=== PATIENT | female | born 1975 | race Two or more races ===

== ENCOUNTER 2020-04-27 11:29 | Outpatient (REF) | payer OTHER, SELFPAY ==
[2020-04-28 21:37] LABS: C. trachomatis RNA TMA NOT DETECTED (NOT DETECTED); N. gonorrhoeae RNA TMA NOT DETECTED (NOT DETECTED)
[2020-04-29 19:17] LABS: HPV mRNA E6/E7 rflx Not Detected (Not Detected)
== END 2020-04-27 11:30 | disposition home or self-care (01) ==
LOC: HO.LAB 11:29
PROVIDERS: PCP Internal Medicine; Visit Provider Advanced Practice Midwife
DX: Z12.4 Encounter for screening for malignant neoplasm of cervix (principal); Z98.890 Other specified postprocedural states; N88.9 Noninflammatory disorder of cervix uteri, unspecified
CPT/HCPCS: 36415; 87491; 87591; 87624; 88141; 88142

== ENCOUNTER 2020-04-29 09:08 | Outpatient (REF) | payer OTHER, SELFPAY ==
[2020-04-29 10:44] LABS: Hematocrit 39.8 % (37-47); Hemoglobin 12.9 g/dl (12.0-16.0); Mean Corpuscular HGB Conc 32.4 g/dl (31.0-35.0); Mean Corpuscular Hemoglobin 29.9 pg (27.0-33.0); Mean Corpuscular Volume 92.1 fL (80-98); Mean Platelet Volume 11.1 fL (9.4-12.3); Platelet Count 261 X10*3/uL (160-400); Red Blood Count 4.32 X10*6/uL (4.20-5.50); Red Cell Distribution Width 13.2 % (11.0-16.0); White Blood Count 4.8 X10*3/uL (4.8-10.8)
[2020-04-29 11:24] LABS: TSH reflex Free T4 1.01 mIU/mL (0.32-4.0)
[2020-04-29 11:36] LABS: Syphilis Screen Nonreactive (Nonreactive)
[2020-04-29 11:40] LABS: HIV AB/AG Nonreactive (Nonreactive); HIV Num 1 0.42 S/CO (0.00-0.99); ~HepC Num1 0.12 S/CO (0.00-0.79); ~Hepatitis C Antibody Nonreactive (Nonreactive)
[2020-04-29 14:19] LABS: HBsAGNum1 0.28 S/CO (0.00-0.99); Hepatitis B Surface Antigen Negative (Negative)
[2020-05-01 10:30] LABS: C. trachomatis RNA TMA NOT DETECTED; N. gonorrhoeae RNA TMA NOT DETECTED
== END 2020-04-29 09:09 | disposition home or self-care (01) ==
LOC: HO.LAB 09:08
PROVIDERS: PCP Internal Medicine; Visit Provider Advanced Practice Midwife
DX: N92.0 Excessive and frequent menstruation with regular cycle (principal); Z20.2 Contact with and (suspected) exposure to infections with a predominantly sexual mode of transmission
CPT/HCPCS: 36415; 84443; 85027; 86780; 86803; 87340; 87389; 87491; 87591

== ENCOUNTER 2021-01-14 09:08 | Outpatient (REF) | payer OTHER, SELFPAY ==
--- NOTE | ~2021-01-14 | MM_ITS ---
EXAMINATION: MM SCREENING DIGITAL BREAST TOMOSYNTHESIS, BILATERAL CLINICAL INFORMATION: Screening. Asymptomatic. The lifetime risk of breast cancer based on the Tyrer-Cuzick Model is 7%. COMPARISON: Mammography: 08/20/2018, 07/25/2017, 04/30/2016 TECHNIQUE: Digital breast tomosynthesis is performed in both the craniocaudal and mediolateral oblique views along with computer-aided detection (CAD). Synthesized 2D images are generated from the tomosynthesis. FINDINGS: There are scattered areas of fibroglandular density (ACR BI-RADS breast composition Category b). There are no significant masses, abnormal calcifications, or other abnormalities. Parenchymal pattern is similar to prior studies. No significant changes. Skin contours are smooth. MM/MM tomosynthesis screening BI IMPRESSION: No mammographic evidence of malignancy. ASSESSMENT: BI-RADS 1: Negative RECOMMENDATION: Routine annual mammography screening. This patient's information was entered into a reminder system with a target due date for their next mammogram.
== END 2021-01-14 09:09 | disposition home or self-care (01) ==
LOC: HO.MAMMO 09:08
PROVIDERS: Visit Provider Internal Medicine
DX: Z12.31 Encounter for screening mammogram for malignant neoplasm of breast (principal)
CPT/HCPCS: 77063; 77067

== ENCOUNTER 2021-04-18 09:10 | Outpatient (REF) | payer OTHER, SELFPAY ==
[2021-04-18 09:44] LABS: MANUAL DIFF FLAG NO
[2021-04-18 10:05] LABS: Basophils Percent Auto 0.4 % (0-2); Eosinophils Absolute Auto 0.1 X10*3/uL (0.0-0.4); Eosinophils Percent Auto 2.2 % (0-4); Hematocrit 39.3 % (37.0-47.0); Hemoglobin 12.8 g/dl (12.0-16.0); Imm Gran Abs Auto 0.01 X10*3/uL (0.00-0.03); Imm Gran Pct Auto 0.2 % (0.0-0.4); Lymphocytes Absolute Auto 1.7 X10*3/uL (1.2-4.9); Mean Corpuscular HGB Conc 32.6 g/dl (31.0-35.0); Mean Corpuscular Hemoglobin 29.9 pg (27.0-33.0); Mean Corpuscular Volume 91.8 fL (80.0-98.0); Mean Platelet Volume 10.3 fL (9.4-12.3); Monocytes Absolute Auto 0.3 X10*3/uL (0.1-1.2); Neutrophils Absolute Auto 2.4 x10*3/uL (2.0-8.3); Neutrophils Percent Auto 53.2 % (45-73); Platelet Count 279 X10*3/uL (160-400); Red Blood Count 4.28 X10*6/uL (4.20-5.50); White Blood Count 4.5 X10*3/uL (4.8-10.8)
[2021-04-18 10:41] LABS: Alanine Aminotransferase 26 U/L (0-31); Albumin Level 4.4 g/dL (3.5-5.0); Alkaline Phosphatase 80 U/L (39-117); Anion Gap 12 (12-20); Aspartate Amino Transferase 19 U/L (5-31); Bilirubin Total < 0.2 mg/dL (0.0-1.0); Blood Urea Nitrogen 15 mg/dL (9-16); Calcium 9.6 mg/dL (8.4-10.2); Carbon Dioxide 27 mmol/L (22-29); Chloride 106 mmol/L (96-108); Cholesterol 191 mg/dL; Estimated Glomerular Filt Rate > 60; Glucose Fasting 92 mg/dL (60-99); HDL Cholesterol 48 mg/dL; LDL Cholesterol Calculated 131 mg/dl; Potassium 4.5 mmol/L (3.3-5.1); Sodium 140 mmol/L (135-145); Total Protein 7.8 g/dL (6.5-8.0); Triglycerides 61 mg/dL
[2021-04-18 10:45] LABS: Appearance Urine CLEAR; Color Urine YELLOW; Glucose Urine UA NEG (NEG); Leukocyte Esterase Urine NEG (NEG); Nitrite Urine NEG (NEG); Specific Gravity - Urine 1.025 (1.005-1.025); Urine Blood NEG (NEG); Urine Ketones NEG (NEG); Urine Protein NEG (NEG-TRACE)
[2021-04-18 11:01] LABS: TSH reflex Free T4 0.92 uIU/mL (0.32-4.0); Vitamin D 25-OH Total 13.1 ng/mL (>30)
== END 2021-04-18 09:11 | disposition home or self-care (01) ==
LOC: HO.LAB 09:10
PROVIDERS: PCP Internal Medicine; Visit Provider Internal Medicine
DX: Z00.00 Encounter for general adult medical examination without abnormal findings (principal); E78.00 Pure hypercholesterolemia, unspecified; E55.9 Vitamin D deficiency, unspecified
CPT/HCPCS: 36415; 80053; 80061; 81003; 82306; 84443; 85025

== ENCOUNTER → 2021-04-28 09:33 | Outpatient (BNVA) | payer OTHER, SELFPAY | PROVIDERS: PCP Internal Medicine; Visit Provider Advanced Practice Midwife ==

== ENCOUNTER → 2021-05-01 07:54 | Outpatient (BNVA) | payer OTHER, SELFPAY | PROVIDERS: PCP Internal Medicine; Visit Provider Obstetrics & Gynecology ==

== ENCOUNTER 2021-05-16 11:00 | Outpatient (REF) | payer OTHER, SELFPAY | END 2021-05-16 11:01 | disposition home or self-care (01) | LOC: HO.LAB 11:00 | PROVIDERS: PCP Internal Medicine; Visit Provider Obstetrics & Gynecology | DX: N90.89 Other specified noninflammatory disorders of vulva and perineum (principal) | CPT/HCPCS: 56605; 88305; 88312 ==

== ENCOUNTER → 2021-05-30 13:29 | Outpatient (BNVA) | payer OTHER, SELFPAY | PROVIDERS: PCP Internal Medicine; Visit Provider Obstetrics & Gynecology ==

== ENCOUNTER → 2021-07-19 09:51 | Outpatient (BNVA) | payer OTHER, SELFPAY | PROVIDERS: PCP Internal Medicine; Referring Provider Obstetrics & Gynecology; Visit Provider Physician Assistant | DX: Z12.11 Encounter for screening for malignant neoplasm of colon (principal) | CPT/HCPCS: 99202 ==

== ENCOUNTER 2021-08-24 12:42 | Outpatient (REF) | payer OTHER, SELFPAY ==
--- NOTE | ~2021-08-24 | XR_ITS ---
EXAMINATION: XR CHEST CLINICAL INFORMATION: Other specified symptoms and signs involving the COMPARISON: Chest radiograph from 12/15/2016 TECHNIQUE: 2 views of the chest were obtained. FINDINGS: Slight curvilinear atelectasis involving the left lung base. No pneumothorax. Trachea is midline. Cardiomediastinal silhouette is not enlarged. No large pleural effusion. Osseous structures are intact. Soft tissues are unremarkable. XR/XR chest 2V IMPRESSION: Slight curvilinear atelectasis involving the left lung base.
== END 2021-08-24 12:43 | disposition home or self-care (01) ==
LOC: HO.HMGCX 12:42
PROVIDERS: PCP Internal Medicine; Visit Provider Internal Medicine
DX: R09.89 Other specified symptoms and signs involving the circulatory and respiratory systems (principal); R53.83 Other fatigue; R68.83 Chills (without fever)
CPT/HCPCS: 71046

== ENCOUNTER 2022-01-02 11:15 | Outpatient (REF) | payer OTHER, SELFPAY ==
[2022-01-02 15:33] LABS: Monotest Negative (Negative)
== END 2022-01-02 11:16 | disposition home or self-care (01) ==
LOC: HO.HMGCLDS 11:15
PROVIDERS: PCP Internal Medicine; Visit Provider Physician Assistant
DX: J02.9 Acute pharyngitis, unspecified (principal)
CPT/HCPCS: 36415; 86308

== ENCOUNTER 2022-01-02 11:44 | Outpatient (REF) | payer OTHER, SELFPAY ==
--- NOTE | ~2022-01-02 | US_ITS ---
EXAMINATION: US PELVIS CLINICAL INFORMATION: Pelvic and perineal pain COMPARISON: Pelvic ultrasound 11/26/2018 TECHNIQUE: Ultrasound of the pelvis is performed using both transabdominal and transvaginal transducers along with Doppler. Transvaginal imaging is performed due to inadequate visualization transabdominally. FINDINGS: Uterus: The uterus is anteverted and measures 9.0 x 4.8 x 5.8 cm. Multiple uterine fibroids are present with a fundal fibroid measuring 2.1 x 2.0 x 1.4 cm (previously 3.9 x 2.7 x 3.9) and a mid uterine submucosal fibroid measuring 2.4 x 1.7 x 2.3 cm (previously 2.2 x 2.0 x 2.4 cm). A new uterine segment fibroid is seen measuring about 1 cm in size. The double wall endometrial thickness is 0.6 mm. The uterus is smooth in contour and has normal myometrial echogenicity. No visible fibroid. Adnexa: Both ovaries are visualized. There is normal color flow to the adnexa. There is no ovarian torsion. There is no pelvic ascites or fluid collection. An abnormal adnexal mass is not seen. Right ovary measures 2.2 x 1.3 x 1.9 cm. Left ovary measures 2.0 x 1.1 x 1.6 cm. US/US pelvic and transvaginal IMPRESSION: Uterine fibroids appear smaller when compared to the prior study.
--- NOTE | ~2022-01-02 | US_ITS ---
EXAMINATION: US PELVIS CLINICAL INFORMATION: Pelvic and perineal pain COMPARISON: Pelvic ultrasound 11/26/2018 TECHNIQUE: Ultrasound of the pelvis is performed using both transabdominal and transvaginal transducers along with Doppler. Transvaginal imaging is performed due to inadequate visualization transabdominally. FINDINGS: Uterus: The uterus is anteverted and measures 9.0 x 4.8 x 5.8 cm. Multiple uterine fibroids are present with a fundal fibroid measuring 2.1 x 2.0 x 1.4 cm (previously 3.9 x 2.7 x 3.9) and a mid uterine submucosal fibroid measuring 2.4 x 1.7 x 2.3 cm (previously 2.2 x 2.0 x 2.4 cm). A new uterine segment fibroid is seen measuring about 1 cm in size. The double wall endometrial thickness is 0.6 mm. The uterus is smooth in contour and has normal myometrial echogenicity. No visible fibroid. Adnexa: Both ovaries are visualized. There is normal color flow to the adnexa. There is no ovarian torsion. There is no pelvic ascites or fluid collection. An abnormal adnexal mass is not seen. Right ovary measures 2.2 x 1.3 x 1.9 cm. Left ovary measures 2.0 x 1.1 x 1.6 cm. US/US pelvic ovarian doppler IMPRESSION: Uterine fibroids appear smaller when compared to the prior study.
== END 2022-01-02 11:45 | disposition home or self-care (01) ==
LOC: HO.HMGCX 11:44
PROVIDERS: PCP Internal Medicine; Visit Provider Physician Assistant
DX: R10.2 Pelvic and perineal pain (principal)
CPT/HCPCS: 76830; 76856; 93975

== ENCOUNTER 2022-01-16 07:47 | Outpatient (REF) | payer OTHER, SELFPAY ==
--- NOTE | ~2022-01-16 | MM_ITS ---
EXAMINATION: MM SCREENING DIGITAL BREAST TOMOSYNTHESIS, BILATERAL CLINICAL INFORMATION: Screening. Asymptomatic. The lifetime risk of breast cancer based on the Tyrer-Cuzick Model is 7%. COMPARISON: Mammography: 01/14/2021, 08/20/2018, 07/25/2017, 04/30/2016 TECHNIQUE: Digital breast tomosynthesis is performed in both the craniocaudal and mediolateral oblique views along with computer-aided detection (CAD). Synthesized 2D images are generated from the tomosynthesis. FINDINGS: There are scattered areas of fibroglandular density (ACR BI-RADS breast composition Category b). Right breast parenchymal pattern is similar to prior studies and there is no developing density or interval mass or architectural abnormality. Neither breast shows abnormal calcifications. Small low left axillary tail node is stable. The bilateral axilla and skin contours are unremarkable. Left CC view has nodular asymmetry central inner breast 6.5 cm from nipple, without appreciable correlate on MLO view. Patient will be recalled for additional imaging. MM/MM tomosynthesis screening BI IMPRESSION: Left: -Nodular asymmetry central 11:00 6.5 cm from nipple on CC view. Right: -No mammographic evidence of malignancy. ASSESSMENT: BI-RADS 0: Incomplete - Need Additional Imaging Evaluation RECOMMENDATION: 1. Additional views of the left breast (rolled CC x2, standard ML). 2. Targeted ultrasound if warranted after review of the additional views. 3. Radiology department staff will contact the patient for additional imaging. This patient's information was entered into a reminder system with a target due date for their next mammogram.
== END 2022-01-16 07:48 | disposition home or self-care (01) ==
LOC: HO.MAMMO 07:47
PROVIDERS: Visit Provider Internal Medicine
DX: Z12.31 Encounter for screening mammogram for malignant neoplasm of breast (principal)
CPT/HCPCS: 77063; 77067

== ENCOUNTER 2022-02-05 14:16 | Outpatient (REF) | payer OTHER, SELFPAY ==
--- NOTE | ~2022-02-05 | MM_ITS ---
EXAMINATION: MM DIAGNOSTIC DIGITAL BREAST TOMOSYNTHESIS, LEFT TARGETED LEFT BREAST ULTRASOUND CLINICAL INFORMATION: Density medial aspect of the left breast. COMPARISON: Mammography: 01/16/2022 and studies dating back to 03/18/2015. TECHNIQUE: Digital breast tomosynthesis is performed. 2D images are generated from the tomosynthesis. The following views are obtained: Rolled medial and lateral craniocaudal views as well as spot compression craniocaudal view and full-field 90 degree mediolateral view of the left breast. Targeted left breast ultrasound. FINDINGS: There are scattered areas of fibroglandular density (ACR BI-RADS breast composition Category b). Additional imaging demonstrates with the rolled views that the lesion lies within the superior aspect of the left breast. There is persistence of an approximately 8 x 4 mm density, a portion of which is well circumscribed but with posterior margin not being well seen. On the 90-degree mediolateral view there appears to be a circumscribed density about the superior aspect of the breast approximately 12 o'clock position. Targeted left breast ultrasound demonstrated a circumscribed and slightly lobulated 7 x 6 x 4 mm solid lesion 12 o'clock position 4 cm from the nipple. There is some adjacent vascular flow but not definite internal vascular flow. The lesion is wider than it is tall. There is no significant distal sound shadowing or enhancement. Ultrasound-guided core biopsy is recommended. Results are discussed with the patient at time of visit. MM/MM tomosynthesis added views L IMPRESSION: Left breast lesion 12 o'clock position for which ultrasound-guided core biopsy is recommended. ASSESSMENT: BI-RADS 4: Suspicious (subcategory 4A: Low suspicion for malignancy) RECOMMENDATION: Ultrasound-guided core biopsy. Above recommendation was called to referring provider's office notifying [facility]. This patient's information was entered into a reminder system with a target due date for their next mammogram.
== END 2022-02-05 14:17 | disposition home or self-care (01) ==
LOC: HO.MAMMO 14:16
PROVIDERS: PCP Internal Medicine; Visit Provider Internal Medicine
DX: N64.89 Other specified disorders of breast (principal)
CPT/HCPCS: 76642; 77061; 77065

== ENCOUNTER → 2022-02-08 08:39 | Outpatient (BNVA) | payer OTHER, SELFPAY | PROVIDERS: PCP Internal Medicine; Visit Provider Surgery | DX: N63.20 Unspecified lump in the left breast, unspecified quadrant (principal) | CPT/HCPCS: 99202 ==

== ENCOUNTER 2022-02-09 07:57 | Outpatient (REF) | payer OTHER, SELFPAY ==
--- NOTE | ~2022-02-09 | MM_ITS ---
PROCEDURE: US GUIDED BREAST BIOPSY, LEFT MM TOMOSYNTHESIS DIAGNOSTIC, LEFT CLINICAL INFORMATION: Indeterminate lump 12-o'clock location, 4 cm from the nipple. COMPARISON: 02/05/2022 PROCEDURAL DETAILS: The details of the procedure, as well as the risks, benefits, and alternatives to the procedure were explained to the patient in detail and all of her questions were answered, after which written informed consent was obtained. Site and side were confirmed. Prior to the procedure, sonography revealed a circumscribed, slightly lobular, hypoechoic lesion. A time-out was performed, the lesion intended for biopsy was targeted, and the skin of the left breast was then prepped and draped in the usual sterile fashion. Using sonographic guidance, sterile technique, and 1% lidocaine without epinephrine for local anesthesia, multiple automated core biopsies were obtained through the targeted area with a 14G spring-loaded Achieve core biopsy device. There was real-time confirmation of appropriate needle passage. Sampling was documented. At the completion of tissue sampling, a single butterfly-shaped metallic clip was deposited at the biopsy site. There was no evidence of immediate complication. SPECIMEN: An appropriate sample was obtained. DIGITAL POST-PROCEDURE MAMMOGRAPHY: Breast density: The tissue contains scattered areas of fibroglandular density. BI-RADS version 5, category B. There are no new mammographic findings demonstrated. The postprocedure 2-view direct digital mammogram reveals the clip to correspond with the location noted on mediolateral oblique view but which is different than the density seen on craniocaudal view. The density on craniocaudal view is not as prominent as on prior study and is well circumscribed and not definitely identified on ultrasound of this region. Recommend 6-month follow up left breast mammography to ensure stability. The patient tolerated the procedure well and, after assuring adequate hemostasis, was discharged in good condition after reviewing postbiopsy breast care instructions. Final pathology results are pending. MM/MM tomosynthesis diagnostic LT IMPRESSION: 1. No immediate complication from ultrasound-guided percutaneous biopsy left breast. 2. Ultrasound was used to localize and guide marker clip placement. 3. The 2-view direct digital postprocedure mammogram reveals the clip to corresponds with density seen on mediolateral oblique view but not on craniocaudal view which appears to be a separate structure and for which 6-month follow up left mammogram is suggested. 4. Final pathology results are pending. A separate report with final recommendations will be issued once these results are made available.
[2022-02-09] MEDS: Lidocaine HCl 1 % 20 ML VIAL 9 ML SUBCUT (09:16)
== END 2022-02-09 07:58 | disposition home or self-care (01) ==
LOC: HO.MAMMO 07:57
PROVIDERS: PCP Internal Medicine; Visit Provider Surgery
DX: N63.25 Unspecified lump in the left breast, overlapping quadrants (principal)
CPT/HCPCS: 19083; 77061; 77065; 88305

== ENCOUNTER → 2022-02-15 08:40 | Outpatient (BNVA) | payer OTHER, SELFPAY | PROVIDERS: PCP Internal Medicine; Visit Provider Surgery | DX: D24.9 Benign neoplasm of unspecified breast (principal) | CPT/HCPCS: 99212 ==

== ENCOUNTER 2022-02-22 10:59 | Outpatient (REF) | payer OTHER, SELFPAY ==
--- NOTE | ~2022-02-22 | US_ITS ---
EXAMINATION: US RETROPERITONEAL LIMITED (RENAL ONLY) CLINICAL INFORMATION: Unspecified abdomen pain. COMPARISON: None TECHNIQUE: Real-time examination. FINDINGS: RIGHT KIDNEY: 11.3 x 6.2 x 5.9 cm (SAG x AP x TRV). The kidney is normal in size, contour, and echogenicity. Renal cortical thickness is normal. No hydronephrosis. There is a small echogenic focus in the lower pole suggestive of a stone measuring 2.5 to 3 mm maximally. LEFT KIDNEY: 11.6 x 6.4 x 5.9 cm (SAG x AP x TRV). The kidney is normal in size, contour, and echogenicity. Renal cortical thickness is normal. No hydronephrotic changes. There are 2 interpolar echogenic foci observed suggestive of small nephroliths measuring up to 3 mm each. US/US renal BI IMPRESSION: Renal sizes as noted above. No hydronephrosis. Bilateral echogenic foci suggestive of small nephroliths.
== END 2022-02-22 11:00 | disposition home or self-care (01) ==
LOC: HO.HMGCX 10:59
PROVIDERS: PCP Internal Medicine; Visit Provider Physician Assistant Medical
DX: R10.9 Unspecified abdominal pain (principal)
CPT/HCPCS: 76775

== ENCOUNTER 2022-02-22 11:38 | Outpatient (REF) | payer OTHER, SELFPAY ==
[2022-02-22 14:15] LABS: Appearance Urine Clear; Color Urine Yellow; Glucose Urine UA Negative (Negative); Leukocyte Esterase Urine Negative (Negative); Nitrite Urine Negative (Negative); PH 7.5 (5.0-9.0); UMIC TRIGGER UACC YES; Urine Blood Moderate (2+) (Negative); Urine Ketones Negative (Negative); Urine Protein Negative (Neg-Trace)
[2022-02-22 14:24] LABS: Bacteria Urine None Seen (None Seen); Hyaline Casts Urine 0-2 /LPF (0-2); Squamous Epithelial Cell Urine 0-2 /HPF (0-2); WBC Urine 0-5 /HPF (0-5)
== END 2022-02-22 11:39 | disposition home or self-care (01) ==
LOC: HO.LAB 11:38
PROVIDERS: Visit Provider Physician Assistant Medical
DX: R10.9 Unspecified abdominal pain (principal); R30.0 Dysuria
CPT/HCPCS: 81001

== ENCOUNTER 2022-03-02 11:27 | Day surgery (SDC) | payer OTHER, SELFPAY ==
--- NOTE | 2021-10-19 09:31 | HO.ANESPROP2 ---
HPI - Anesthesia Eval Consult details Narrative: 46yo F for Colonoscopy PMFSH Active Problems Active Problems: All Active Problems (Updated 08/24/21 @ 12:32 by Suma Armando MD) Lack of energy (Acute) Chills (Acute) Tired (Acute) Chest congestion (Acute) Acute bronchitis (Acute) Encounter for screening colonoscopy (Acute) Lichen simplex chronicus (Acute) Vulvar lesion (Acute) Well woman exam (Acute) Anxiety and depression (Acute) Overweight (BMI 25.0-29.9) (Acute) Annual physical exam (Acute) Otitis media (Acute) Past Medical History Medical History Anxiety COVID-19 Depression History of menorrhagia Overweight (BMI 25.0-29.9) Family History Family History Mother Mental health disorder Father No problems noted. Surgical History Surgical History H/O prior ablation treatment Hx of tubal ligation Social History Social History Housing: House Alcohol intake: never Patient Tobacco Use Status: Never used Tobacco Second Hand Smoke Exposure: No service: No Current occupational status: employed Gender identity: Female Meds Allergies Allergy/AdvReac Type Severity Reaction Status Date / Time oxycodone [OXYCODONE] Allergy Unknown N/V,DIZZY Verified 08/24/21 12:21 shrimp AdvReac Unknown NAUSEA Verified 08/24/21 12:21 Shrimp Allergy Unknown Stomache Uncoded 08/24/21 12:21 pain Exam Exam Date and Time: October 19, 2021 0931 Pertinent Lab Results Pertinent Lab Results: Laboratory Tests 04/18/21 04/18/21 09:40 09:40 WBC 4.5 L Hgb 12.8 Hct 39.3 Plt Count 279 Sodium 140 Potassium 4.5 Chloride 106 Carbon Dioxide 27 BUN 15 Creatinine 0.74 Assessment and Plan Assessment Anesthesia Assessment: Chart Reviewed
[2022-02-23 10:45] VITALS: BMI 28.5
--- NOTE | 2022-03-01 14:07 | HO.ANESPROP2 ---
Documented by User: Agustina Benz NP 03/01/22 14:13 HPI - Anesthesia Eval Consult details Narrative: 46yo F for Colonoscopy PMFSH Active Problems Active Problems: All Active Problems (Updated 02/27/22 @ 18:43 by Danie Briceno MD) Nephrolithiasis (Acute) Otitis media (Acute) Annual physical exam (Acute) Anxiety and depression (Acute) Well woman exam (Acute) Vulvar lesion (Acute) Lichen simplex chronicus (Acute) Encounter for screening colonoscopy (Acute) Acute bronchitis (Acute) Chest congestion (Acute) Tired (Acute) Chills (Acute) Lack of energy (Acute) Fibroadenoma (Acute) Breast mass, left (Acute) Overweight (BMI 25.0-29.9) (Acute) Past Medical History Medical History Anxiety Breast mass, left COVID-19 Depression Fibroadenoma History of menorrhagia Overweight (BMI 25.0-29.9) Family History Family History Mother Mental health disorder Father No problems noted. Surgical History Surgical History H/O prior ablation treatment Hx of breast biopsy Hx of tubal ligation Social History Social History Housing: House Alcohol intake: never Patient Tobacco Use Status: Never used Tobacco Second Hand Smoke Exposure: No Use of substances other than those prescribed or required for medical reasons: No Are you DNR?: No Advance Directives: No Advance Directives Information Provided: Yes service: No Current occupational status: employed Gender identity: Female Meds Allergies Allergy/AdvReac Type Severity Reaction Status Date / Time oxycodone [OXYCODONE] Allergy Intermediate nausea/vomi Verified 02/23/22 10:39 ting/dizzin ess shrimp AdvReac Intermediate NAUSEA Verified 02/23/22 10:39 Home Medications Medication Instructions Recorded Confirmed Last Taken Type No Known Home Meds 02/15/22 02/23/22 Unknown History Exam Exam Date and Time: March 01, 2022 1407 Height,Weight and Vital Signs: Height 5 ft 6 in Weight 80.286 kg Assessment and Plan Assessment Anesthesia Assessment: Chart Reviewed Documented by User: Shelbi Fulton MD 03/02/22 14:04 [facility] Active Problems Active Problems: All Active Problems (Updated 02/27/22 @ 18:43 by Danie Briceno MD) Nephrolithiasis (Acute) Otitis media (Acute) Annual physical exam (Acute) Anxiety and depression (Acute) Well woman exam (Acute) Vulvar lesion (Acute) Lichen simplex chronicus (Acute) Encounter for screening colonoscopy (Acute) Acute bronchitis (Acute) Chest congestion (Acute) Tired (Acute) Chills (Acute) Lack of energy (Acute) Fibroadenoma (Acute) Breast mass, left (Acute) Overweight (BMI 25.0-29.9) (Acute) Cough- clear sputum. No fever,malaise, sore throat, chest pain, body aches Past Medical History Medical History Anxiety Breast mass, left COVID-19 Depression Fibroadenoma History of menorrhagia Overweight (BMI 25.0-29.9) Family History Family History Mother Mental health disorder Father No problems noted. Family history of problems with anesthesia: No Surgical History Surgical History H/O prior ablation treatment Hx of breast biopsy Hx of tubal ligation History of Problems with Anesthesia: No Social History Social History Housing: House Alcohol intake: never Patient Tobacco Use Status: Never used Tobacco Second Hand Smoke Exposure: No Use of substances other than those prescribed or required for medical reasons: No Are you DNR?: No Advance Directives: No Advance Directives Information Provided: Yes service: No Current occupational status: employed Gender identity: Female Meds Allergies Allergy/AdvReac Type Severity Reaction Status Date / Time oxycodone [OXYCODONE] Allergy Intermediate nausea/vomi Verified 02/23/22 10:39 ting/dizzin ess shrimp AdvReac Intermediate NAUSEA Verified 02/23/22 10:39 Home Medications Medication Instructions Recorded Confirmed Last Taken Type No Known Home Meds 02/15/22 02/23/22 Unknown History Exam Height,Weight and Vital Signs: Height 5 ft 6 in Weight 80.286 kg Vital Signs Temp Pulse Resp BP Pulse Ox O2 Del Method 03/02/22 12:05 98.1 F 104 H 18 127/72 96 Room Air Airway Mallampati Class: II TM Dist: >3cm Neck ROM: Full Loose/Missing/Broken Teeth: No Heart: RRR Lungs: CTAB Assessment and Plan Assessment Anesthesia Assessment: Anesthesia Plan Discussed Final Anesthetic Review Family History of Problems with Anesthesia: No History of Problems with Anesthesia: No NPO: Yes ASA Class: II Final Preanesthetic Review: No Changes in Pt Med Stat, Meds/Allgs Chart Reviewed, Consent Obtained/Reviewed and Anes Risks/Benef Reviewed Patient Risk: Low Procedure Risk: Low Assessment/Block/Sedation in SS: Assess/Block/Sedation-SS Anesthetic Plan Anesthetic Plan: MAC: Disposition: Standard PACU
[2022-03-02 12:01] VITALS: BMI 28.2
[2022-03-02 12:05] VITALS: BP 127/72; PULSE 104; RESP 18; TEMP 36.7; O2SAT 96
[2022-03-02] MEDS: Lactated Ringers 1,000 ML 100 ML IVCONT (12:28)
--- NOTE | 2022-03-02 14:13 | MHC.SHP ---
Pre-Procedural Eval Section A Date of Service: 03/02/22 Section B Chief Complaint: screening Relevant Family History (Specify if Yes): No Relevant Social History: None Present Medications: see Short Stay Collaborative assessment Medical History: Significant History (Anxiety, nephrolithiasis, fibroadenoma ) Allergies: Allergies Allergy/AdvReac Type Severity Reaction Status Date / Time oxycodone [OXYCODONE] Allergy Intermediate nausea/vomi Verified 02/23/22 10:39 ting/dizzin ess shrimp AdvReac Intermediate NAUSEA Verified 02/23/22 10:39 Review of Systems Review of Systems Comment: 10 point ROS negative Exam Exam Comment: Gen appear: No acute distress, well nourished HEENT: no icterus, no cervical lymphadenopathy Chest: No overt resp distress Abd: soft, nontender, nondistended Psych: Stable affect, answering questions appropriately Neuro: A/Ox3 noted to move all extremities spontaneously Ext: no peripheral edema Plan Diagnosis/Plan: Unchanged I have reviewed the history and physical and performed a pertinent physical examination on my patient. No changes have occurred unless specified.
--- NOTE | 2022-03-02 14:14 | P.OP_ITS ---
Operative Note Operative Note Date of Service: 03/02/22 Narrative: Procedure: Colonoscopy Indication: Screening Endoscopist: Rosanna Barrera MD Anesthesia Provider: Cris Adams CRNA Anesthesia type: MAC Instrument: Olympus [id number]-H190L Consent: Indication, risks vs benefits, and alternatives were discussed with the patient who gave written informed consent to proceed. EKG, pulse, pulse oximetry and blood pressure were monitored throughout the procedure. Please see anesthesia flowsheet. Procedure: The patient was brought to the procedure room and placed in the left lateral decubitus position. IV medications were administered by the anesthesia provider in attendance. A digital rectal exam was performed which was abnormal due to finding of hemorrhoids. The colonoscope was then inserted through the anus and advanced through the colon to the cecum at 70 cm,and terminal ileum. Mucosa was carefully examined under high definition white light as the instrument was slowly withdrawn in a retrograde panoramic fashion. Retroflexion was performed in rectum. The procedure was not difficult. There were no immediate obvious complications. The quality of the prep was BBPS: 3+3+3 = excellent Withdrawal time 10 minutes. Limitations: No limitations. Findings: Mucosa: Normal to cecum and terminal ileum. Protruding lesions: * Large internal and external hemorrhoids without stigmata of recent bleeding. Impression: 1. Normal colon and terminal mucosa 2. Hemorrhoids Recommendations: - Repeat colonoscopy in 10 years for CRC screening. - High fiber diet, sitz baths
[2022-03-02 14:18] VITALS: BP 90/62; PULSE 87; RESP 16; TEMP 36.3; O2SAT 98
[2022-03-02 14:33] VITALS: BP 112/56; PULSE 83; RESP 19; TEMP 36.6; O2SAT 97
== END 2022-03-02 15:05 | disposition home or self-care (01) ==
PROVIDERS: PCP Internal Medicine; Visit Provider Internal Medicine
PROC: 0DJD8ZZ Inspection of Lower Intestinal Tract, Via Natural or Artificial Opening Endoscopic (ICD-10-PCS; CPT 45378; principal; 2022-03-02 14:10)
DX: Z12.11 Encounter for screening for malignant neoplasm of colon (principal); K64.8 Other hemorrhoids; K64.4 Residual hemorrhoidal skin tags; F41.1 Generalized anxiety disorder; D24.2 Benign neoplasm of left breast; E66.3 Overweight; Z68.28 Body mass index [BMI] 28.0-28.9, adult; Z88.8 Allergy status to other drugs, medicaments and biological substances; Z86.16 Personal history of COVID-19
CPT/HCPCS: 45378; J2250

== ENCOUNTER 2022-04-17 10:18 | Outpatient (REF) | payer OTHER, SELFPAY ==
[2022-04-17 10:41] LABS: MANUAL DIFF FLAG NO
[2022-04-17 10:45] LABS: Basophils Percent Auto 0.6 % (0-2); Eosinophils Absolute Auto 0.2 X10*3/uL (0.0-0.4); Eosinophils Percent Auto 3.2 % (0-4); Hemoglobin 12.6 g/dl (12.0-16.0); Imm Gran Abs Auto 0.02 X10*3/uL (0.00-0.03); Imm Gran Pct Auto 0.4 % (0.0-0.4); Lymphocytes Absolute Auto 1.6 X10*3/uL (1.2-4.9); Lymphocytes Percent Auto 33.4 % (20-40); Mean Corpuscular HGB Conc 33.2 g/dl (31.0-35.0); Mean Corpuscular Hemoglobin 30.7 pg (27.0-33.0); Mean Corpuscular Volume 92.5 fL (80.0-98.0); Mean Platelet Volume 9.6 fL (9.4-12.3); Monocytes Absolute Auto 0.5 X10*3/uL (0.1-1.2); Monocytes Percent Auto 10.7 % (2-11); Neutrophils Absolute Auto 2.5 x10*3/uL (2.0-8.3); Neutrophils Percent Auto 51.7 % (45-73); Platelet Count 230 X10*3/uL (160-400); Red Blood Count 4.11 X10*6/uL (4.20-5.50); Red Cell Distribution Width 12.8 % (11.0-16.0); White Blood Count 4.8 X10*3/uL (4.8-10.8)
[2022-04-17 11:51] LABS: Alanine Aminotransferase 16 U/L (0-31); Alkaline Phosphatase 73 U/L (39-117); Anion Gap 9 (12-20); Aspartate Amino Transferase 14 U/L (5-31); Bilirubin Total 0.4 mg/dL (0.0-1.0); Blood Urea Nitrogen 14 mg/dL (9-16); Calcium 9.3 mg/dL (8.4-10.2); Carbon Dioxide 28 mmol/L (22-29); Chloride 107 mmol/L (96-108); Cholesterol 174 mg/dL; Estimated Glomerular Filt Rate > 60; Glucose Fasting 102 mg/dL (60-99); HDL Cholesterol 46 mg/dL; Iron 61 mcg/dL (30-160); LDL Cholesterol Calculated 117 mg/dl; Percent Iron Saturation 23 % (15-50); Potassium 4.3 mmol/L (3.3-5.1); Sodium 140 mmol/L (135-145); Total Iron Binding Capacity 265 mcg/dL (228-428); Total Protein 6.7 g/dL (6.5-8.0); Triglycerides 56 mg/dL; Unsaturated Iron Binding 204 ug/dL
[2022-04-17 12:09] LABS: TSH reflex Free T4 1.53 uIU/mL (0.32-4.0); Vitamin D 25-OH Total 12.9 ng/mL (>30)
== END 2022-04-17 10:19 | disposition home or self-care (01) ==
LOC: HO.LAB 10:18
PROVIDERS: PCP Internal Medicine; Visit Provider Internal Medicine
DX: Z00.00 Encounter for general adult medical examination without abnormal findings (principal); E55.9 Vitamin D deficiency, unspecified; E78.00 Pure hypercholesterolemia, unspecified; D50.9 Iron deficiency anemia, unspecified
CPT/HCPCS: 36415; 80053; 80061; 81003; 82306; 83540; 84443; 85025

== ENCOUNTER 2022-04-25 14:09 | Outpatient (REF) | payer OTHER, SELFPAY ==
[2022-04-25 17:24] LABS: Urine Cytology See Pathology rpt
== END 2022-04-25 14:10 | disposition home or self-care (01) ==
LOC: HO.LAB 14:09
PROVIDERS: PCP Internal Medicine; Visit Provider Nurse Practitioner Family
DX: N20.0 Calculus of kidney (principal); R31.29 Other microscopic hematuria
CPT/HCPCS: 88112; 99202

== ENCOUNTER 2022-05-02 09:08 | Outpatient (REF) | payer OTHER, SELFPAY ==
[2022-05-02 16:53] LABS: CT PCR NOT DETECTED (Not Detect.); NG PCR NOT DETECTED (Not Detect.)
[2022-05-03 13:47] LABS: BV Int Neg Control Negative (Negative); BV Int Pos Control Positive (Positive)
[2022-05-05 03:18] LABS: HPV mRNA E6/E7 rflx Not Detected (Not Detected)
== END 2022-05-02 09:09 | disposition home or self-care (01) ==
LOC: HO.LNP 09:08
PROVIDERS: PCP Internal Medicine; Visit Provider Advanced Practice Midwife
DX: Z01.419 Encounter for gynecological examination (general) (routine) without abnormal findings (principal); Z11.51 Encounter for screening for human papillomavirus (HPV)
CPT/HCPCS: 0353U; 87480; 87510; 87624; 87660; 88142

== ENCOUNTER 2022-05-09 11:36 | Outpatient (REF) | payer OTHER, SELFPAY ==
[2022-05-09 12:33] LABS: Appearance Urine Cloudy; Color Urine Yellow; Glucose Urine UA Negative (Negative); Leukocyte Esterase Urine Negative (Negative); Nitrite Urine Negative (Negative); PH 7.5 (5.0-9.0); Specific Gravity - Urine 1.015 (1.005-1.025); Urine Blood Negative (Negative); Urine Ketones Negative (Negative); Urine Protein Negative (Neg-Trace)
[2022-05-09 13:15] LABS: Syphilis Screen Nonreactive (Nonreactive)
[2022-05-11 06:23] LABS: HBsAGNum1 0.25 S/CO (0.00-0.99); HIV AB/AG Nonreactive (Nonreactive); Hepatitis B Surface Antigen Negative (Negative); ~HepC Num1 0.13 S/CO (0.00-0.79); ~Hepatitis C Antibody Nonreactive (Nonreactive)
== END 2022-05-09 11:37 | disposition home or self-care (01) ==
LOC: HO.LAB 11:36
PROVIDERS: PCP Internal Medicine; Visit Provider Advanced Practice Midwife
DX: Z00.00 Encounter for general adult medical examination without abnormal findings (principal); Z11.4 Encounter for screening for human immunodeficiency virus [HIV]; Z11.3 Encounter for screening for infections with a predominantly sexual mode of transmission; R30.0 Dysuria
CPT/HCPCS: 36415; 81003; 86780; 86803; 87340; 87389

== ENCOUNTER 2022-08-22 09:54 | Outpatient (REF) | payer OTHER, SELFPAY ==
--- NOTE | ~2022-08-22 | US_ITS ---
EXAMINATION: US RETROPERITONEAL LIMITED (RENAL ONLY) CLINICAL INFORMATION: Calculus of kidney. COMPARISON: Renal ultrasound 02/22/2022. CT abdomen and pelvis 10/14/2014. Ultrasound abdomen complete 10/26/2014. TECHNIQUE: Real-time imaging of the kidneys. FINDINGS: RIGHT KIDNEY: 11.3 x 6.1 x 6.4 cm (SAG x AP x TRV). The kidney is normal in size, contour, and echogenicity. Renal cortical thickness is normal. No focal parenchymal lesions or hydronephrosis. There are echogenic stones in the midpole measuring 0.4 x 0.4 x 0.4 cm and lower pole measuring 0.4 x 0.3 x 0.5 cm and a cluster of calculi lower pole measuring 0.8 x 0.3 x 0.3 cm. LEFT KIDNEY: 11.2 x 5.5 x 5.2 cm (SAG x AP x TRV). The kidney is normal in size, contour, and echogenicity. Renal cortical thickness is normal. No focal parenchymal lesions or hydronephrosis. There are nonobstructive echogenic stones in upper pole measuring 0.2 x 0.3 x 0.3 cm and midpole measuring 0.2 x 0.2 x 0.2 cm. US/US renal BI IMPRESSION: Bilateral nonobstructive echogenic renal calculi. There is no hydronephrosis. There is no major change in the kidney stones from previous ultrasound exam 02/22/2022.
== END 2022-08-22 09:55 | disposition home or self-care (01) ==
LOC: HO.HMGCX 09:54
PROVIDERS: PCP Internal Medicine; Visit Provider Nurse Practitioner Family
DX: N20.0 Calculus of kidney (principal)
CPT/HCPCS: 76775

== ENCOUNTER → 2022-09-18 09:37 | Outpatient (BNVA) | payer OTHER, SELFPAY | PROVIDERS: PCP Internal Medicine; Visit Provider Nurse Practitioner Family | DX: N20.0 Calculus of kidney (principal) | CPT/HCPCS: 99212 ==

== ENCOUNTER 2022-11-05 17:48 | Inpatient (IN) | payer OTHER, SELFPAY ==
[2022-11-01 10:34] VITALS: BMI 28.7
--- NOTE | 2022-11-02 10:41 | P.CONAN_ITS ---
Documented by User: Agustina Benz NP 11/02/22 10:45 HPI - Anesthesia Eval Consult details Narrative: 47yo F for Right Cystoscopy, Ureteroroscopy, Retro, Laser,poss stent PMFSH Active Problems Active Problems: All Active Problems (Updated 09/19/22 @ 20:48 by Yancy Alexandra [facility]) Flank pain (Acute) Upper respiratory tract infection (Acute) Lichen simplex chronicus (Acute) Hx of tubal ligation (Acute) H/O prior ablation treatment (Acute) Screen for sexually transmitted diseases (Acute) Cervical cancer screening (Acute) Microscopic hematuria (Acute) Sinusitis, acute (Acute) Hemorrhoids (Acute) Nephrolithiasis (Acute) Otitis media (Acute) Annual physical exam (Acute) Anxiety and depression (Acute) Well woman exam (Acute) Vulvar lesion (Acute) Lichen simplex chronicus (Acute) Encounter for screening colonoscopy (Acute) Acute bronchitis (Acute) Chest congestion (Acute) Tired (Acute) Chills (Acute) Lack of energy (Acute) Fibroadenoma (Acute) Breast mass, left (Acute) Overweight (BMI 25.0-29.9) (Acute) Past Medical History Medical History Anxiety Breast mass, left COVID-19 Depression Fibroadenoma History of menorrhagia Overweight (BMI 25.0-29.9) Family History Family History Mother Mental health disorder Father No problems noted. Family history of problems with anesthesia: No Surgical History Surgical History H/O prior ablation treatment Hx of breast biopsy Hx of colonoscopy Hx of tubal ligation History of Problems with Anesthesia: No Social History Social History Housing: House Alcohol intake: never Patient Tobacco Use Status: Never used Tobacco e-Cigarette/Vaping Use: Never Used Second Hand Smoke Exposure: No service: No Current occupational status: employed Gender identity: Female Cognitive needs: No Hearing needs: No Vision needs: Yes Meds Allergies Allergy/AdvReac Type Severity Reaction Status Date / Time oxycodone [OXYCODONE] Allergy Intermediate nausea/vomi Verified 09/19/22 20:39 ting/dizzin ess shrimp AdvReac Intermediate NAUSEA Verified 09/19/22 20:39 Exam Exam Date and Time: November 02, 2022 1041 Height,Weight and Vital Signs: Height 5 ft 6 in Weight 80.739 kg Pertinent Lab Results Pertinent Lab Results: Laboratory Tests 04/17/22 04/17/22 10:40 10:40 WBC 4.8 Hgb 12.6 Hct 38.0 Plt Count 230 Sodium 140 Potassium 4.3 Chloride 107 Carbon Dioxide 28 BUN 14 Creatinine 0.79 Assessment and Plan Assessment Anesthesia Assessment: Chart Reviewed Final Anesthetic Review Family History of Problems with Anesthesia: No History of Problems with Anesthesia: No Documented by User: Shelbi Fulton MD 11/05/22 13:57 HPI - Anesthesia Eval Consult details Narrative: 47yo F for Cystoscopy, Right Ureteroroscopy, Retro, Laser,poss stent PMFSH Active Problems Active Problems: All Active Problems (Updated 11/05/22 @ 12:55 by Shelbi Fulton MD) Flank pain (Acute) Upper respiratory tract infection (Acute) Lichen simplex chronicus (Acute) Hx of tubal ligation (Acute) H/O prior ablation treatment (Acute) Screen for sexually transmitted diseases (Acute) Cervical cancer screening (Acute) Microscopic hematuria (Acute) Sinusitis, acute (Acute) Hemorrhoids (Acute) Nephrolithiasis (Acute) Otitis media (Acute) Annual physical exam (Acute) Anxiety and depression (Acute) Well woman exam (Acute) Vulvar lesion (Acute) Lichen simplex chronicus (Acute) Encounter for screening colonoscopy (Acute) Acute bronchitis (Acute) Chest congestion (Acute) Tired (Acute) Chills (Acute) Lack of energy (Acute) Fibroadenoma (Acute) Breast mass, left (Acute) Overweight (BMI 25.0-29.9) (Acute) Past Medical History Medical History Anxiety Breast mass, left COVID-19 Depression Fibroadenoma History of menorrhagia Overweight (BMI 25.0-29.9) Family History Family History Mother Mental health disorder Father No problems noted. Surgical History Surgical History H/O prior ablation treatment Hx of breast biopsy Hx of colonoscopy Hx of tubal ligation Social History Social History Housing: House Alcohol intake: never Patient Tobacco Use Status: Never used Tobacco e-Cigarette/Vaping Use: Never Used Second Hand Smoke Exposure: No service: No Current occupational status: employed Gender identity: Female Cognitive needs: No Hearing needs: No Vision needs: Yes Meds Allergies Allergy/AdvReac Type Severity Reaction Status Date / Time oxycodone [OXYCODONE] Allergy Intermediate nausea/vomi Verified 09/19/22 20:39 ting/dizzin ess shrimp AdvReac Intermediate NAUSEA Verified 09/19/22 20:39 Exam Height,Weight and Vital Signs: Height 5 ft 6 in Weight 80.739 kg Vital Signs Temp Pulse Resp BP Pulse Ox O2 Del Method 11/05/22 12:38 97.3 F 81 18 147/96 H 98 Room Air Airway Mallampati Class: II TM Dist: >3cm Neck ROM: Full Loose/Missing/Broken Teeth: No Heart: RRR Lungs: CTAB Assessment and Plan Final Anesthetic Review NPO: Yes ASA Class: II Final Preanesthetic Review: No Changes in Pt Med Stat, Meds/Allgs Chart Reviewed, Consent Obtained/Reviewed and Anes Risks/Benef Reviewed Patient Risk: Low Procedure Risk: Low Assessment/Block/Sedation in SS: Assess/Block/Sedation-SS Anesthetic Plan Anesthetic Plan: GA Disposition: Standard PACU
[2022-11-05] VITALS (20 sets, daily range): BP systolic 111–147; BP diastolic 63–96; PULSE 57–81; RESP 16–18; TEMP 36.1–37; O2SAT 96–100; BMI 27.4
--- NOTE | ~2022-11-05 | FL_ITS ---
EXAMINATION: XR FLUOROSCOPY WITH IMAGES CLINICAL INFORMATION: Right stone. COMPARISON: None available. TECHNIQUE: Fluoroscopy Supervised By: Dr. Armani Armijo. Fluoroscopy Time: 11.7 seconds. Cumulative Dose: 2.92 mGy. Images: 2. FINDINGS: There are 2 digital images revealing endoscope right proximal ureter and guidewire within the right renal pelvis. There is contrast opacifying the right kidney pelvis. No filling defects seen on these limited images. FL/FL guidance in OR IMPRESSION: Fluoroscopy was provided to referring physician for right retrograde pyelogram.
[2022-11-05] MEDS: Lactated Ringers 1,000 ML 100 ML IVCONT ×2 (12:50→18:53)
[2022-11-05] MEDS: ondansetron HCL 4 MG/2 ML VIAL IVPUSH (14:11)
[2022-11-05] MEDS: fentaNYL citrate/PF 100 MCG/2 ML VIAL 25 MCG IVPUSH ×4 (14:30→14:45)
[2022-11-05] MEDS: Phenazopyridine HCL 100 MG TABLET PO (14:32)
[2022-11-05] MEDS: traMADoL HCL 50 MG TABLET PO ×2 (14:32→22:02)
[2022-11-05] MEDS: HYDROmorphone HCl 2 MG TABLET PO (15:30)
[2022-11-05] MEDS: oxyBUTYnin chloride 5 MG TABLET PO (17:02)
[2022-11-05] MEDS: Ketorolac Tromethamine 15 MG/ML VIAL IVPUSH (18:50)
[2022-11-06 03:12] VITALS: BP 96/52; PULSE 84; RESP 17; TEMP 36.8; O2SAT 98
[2022-11-06 04:08] VITALS: BMI 27.4
[2022-11-06] MEDS: traMADoL HCL 50 MG TABLET PO ×2 (04:55→11:16)
[2022-11-06] MEDS: Lactated Ringers 1,000 ML 100 ML IVCONT (05:10)
--- NOTE | 2022-11-06 07:49 | PHA.MEDREC ---
Pharmacy Consult ? Medication Reconciliation Pharmacy has completed the medication reconciliation. Reviewed med rec done by provider based on claim history
[2022-11-06 08:00] VITALS: BP 110/53; PULSE 88; RESP 17; TEMP 36.7; O2SAT 96
--- NOTE | 2022-11-06 10:42 | MHC.CM.PN ---
pt dcd home no skilled servceis ordered by
--- NOTE | 2022-11-06 11:22 | PM.DS ---
DS: Providers Provider Date of Service: 11/06/22 Date of admission: 11/05/22 17:48 Primary care physician: Danie Briceno MD DS: Diagnosis Discharge Diagnosis (1) Renal calculus, right: Start date: 11/05/22 Status: Acute DS: Summary Hospital Course Hospital Course: Admission with pain following procedure Status at Discharge Functional status at discharge: independent ambulation Overall status at discharge: patient is back to baseline Time Spent with Patient Time attestation: Total time managing care of this patient today ____ minutes. Discharge coordination time: Less than 30 minutes Quality: Safe Use of Opioids Does Pt have an Active Cancer Diagnosis on the Problem List?: No Quality: Stroke Does the patient have a stroke diagnosis?: No Physical Exam Vital Signs: Vital Signs: Last Vital Signs Temp 98.1 F 11/06/22 08:00 Pulse 88 11/06/22 08:00 Resp 17 11/06/22 08:00 BP 110/53 L 11/06/22 08:00 Pulse Ox 96 11/06/22 08:00 O2 Del Method Room Air 11/06/22 08:00 O2 Flow Rate 6 11/05/22 13:45 BMI result Body Mass Index 27.4 Discharge Plan Discharge Anticipated Discharge Date/Time: 11/06/22 11:04 Patient Disposition: Home, Self-Care Discharge Diagnosis: renal stones Referrals: Danie Briceno MD [Primary Care Provider] - None Armani Armijo MD [Physician] - 2 Weeks Discharge Medications: New tramadol 50 mg tablet 50 mg PO Q6H PRN (Reason: pain (scale score 1-3)) Qty: 8 0RF tamsulosin 0.4 mg capsule 0.4 mg PO BEDTIME 14 Days Qty: 14 0RF phenazopyridine [Pyridium] 100 mg tablet 100 mg PO TID PRN (Reason: Spasm) 4 Days Qty: 12 0RF Discharge Orders: Discharge Order (Routine); Ordered 11/05/22 Ordered By: Armani Armijo Diet: Advance to usual diet Activity on Discharge: As tolerated Care Plan Goals: stones Health Concerns: stones Plan of Treatment: stones Assessment: stones Patient Instructions: Ureteroscopy (DC)
--- NOTE | 2022-11-06 14:35 | HO.POSTANES ---
Post Anesthesia Evaluation Post Anesthesia Evaluation Date of Service: 11/06/22 Vital Signs: Vital Signs Temp Pulse Resp BP Pulse Ox O2 Del Method 11/06/22 08:00 98.1 F 88 17 110/53 L 96 Room Air 11/06/22 03:12 98.2 F 84 17 96/52 L 98 Room Air Anesthesia: General Mental Status: Awake Pain Control: Satisfactory Nausea/Vomiting: None Hydration: Adequate Anesthesia-Related Issues: No Anes. Related Issues
--- NOTE | 2023-01-03 15:45 | P.OP_ITS ---
Operative Note Operative Note Date of Service: 11/05/22 Narrative: PreOperative Diagnosis: Right renal stones Post Operative Diagnosis: Right renal stone Procedure: - cystoscopy, right retrograde - right dilatation of ureteric orifice under fluoroscopy - right ureteroscopy, laser lithotripsy, stone basketing Surgeon: Dr Armani Armijo Anesthesia: General Indications for procedure: Persistent cluster of small stones on renal ultrasound Procedure: After informed consent was verified patient was brought to the operating placed in supine position. Anesthesia was administered per protocol. Patient was placed in modified dorsal lithotomy position and prepped and draped in a sterile fashion. Safety pause time-out and side of surgery confirmed. Antibiotics confirmed. 22 Togolese cystoscope was inserted per urethra. Bladder was normal in its entirety. Both ureteric orifices were in normal position. The right ureteric orifice was cannulated and a retrograde examination was performed. No filling defects stone right ureter. A Sensor guidewire was placed up to the level of the renal pelvis under fluoro scopy. The rigid cystoscope was removed and the inner cannula of ureteric access sheath was used under fluoroscopy to dilate the ureteric orifice. The ureteric access sheath was placed and the inner cannula with access wire removed. The digital flexible ureteral scope was placed. Stones encountered within right renal pelvis. They were consistent with Medullary calcinosis type picture submucosal areas. Using a laser they were broken up been released. They were all very small in nature. At the completion of the stone procedure the access sheath was from moved with scope. Ureter is examined in minimal mucosal change was seen. A decision was made not to place a stent. The bladder was emptied. The patient tolerated the procedure well and was extubated in the operating room, and transferred in stable condition to the recovery area. Pathology: Stones too small for basket Drains: []
== END 2022-11-06 12:25 | disposition home or self-care (01) | DRG 446 ==
LOC: HO.EDOVER 17:53 → HO.S3 17:56
PROVIDERS: Admitting Provider Urology; PCP Internal Medicine; Visit Provider Urology
PROC: 0TC68ZZ Extirpation of Matter from Right Ureter, Via Natural or Artificial Opening Endoscopic (ICD-10-PCS; CPT 52353; principal; 2022-11-05 14:10)
DX: N20.0 Calculus of kidney (principal); F41.9 Anxiety disorder, unspecified
CPT/HCPCS: 52353; C1758; C1769; C1894; J0131; J1100; J1885; J1956; J2250; J2405; J2550; J3010; Q9967

== ENCOUNTER → 2022-11-05 17:48 | Outpatient (BNV) | payer SELFPAY | PROVIDERS: Admitting Provider Urology; PCP Internal Medicine; Visit Provider Urology | DX: N20.0 Calculus of kidney (principal) | CPT/HCPCS: 52353; 99238 ==

== ENCOUNTER 2022-11-14 14:12 | Outpatient (AMB) | payer OTHER, SELFPAY ==
--- NOTE | 2022-11-14 15:15 | MHC.OFFVIS ---
Intake Intake Visit Reasons: 1 week post op Intake Note: Patient is present for Telephone post op Urology Med: Tamsulosin Antibiotic Allergy: None Blood Thinner: None Pharmacy: [facility] Allergies oxycodone [OXYCODONE] Allergy (Intermediate, Verified 09/19/22 20:39) nausea/vomiting/dizziness shrimp Adverse Reaction (Intermediate, Verified 09/19/22 20:39) NAUSEA HPI HPI Comments History of Present Illness Details Vanda is a pleasant female. She is a patient of Dr. Briceno. She presents following urologic conditions - nephrolithiasis Telemedicine Evaluation 15 min Consultation Boqii Elijah Video attempted Nephrolithiasis Initial presentation early 2022 Multiple echogenic stones seen measuring 4 mm 5 mm 3 mm on right kidney Underwent ureteroscopy Recommend continue surveillance PFS Medical History Anxiety Breast mass, left COVID-19 Depression Fibroadenoma History of menorrhagia Overweight (BMI 25.0-29.9) Surgical History H/O prior ablation treatment Hx of breast biopsy Hx of colonoscopy Hx of tubal ligation Family History Mother Mental health disorder Father No problems noted. Social History Household Members: Family Housing: House Do you presently have visiting nurse or other home services: No Alcohol intake: never Patient Tobacco Use Status: Never used Tobacco e-Cigarette/Vaping Use: Never Used Second Hand Smoke Exposure: No service: No Current occupational status: employed Gender identity: Female Cognitive needs: No Hearing needs: No Vision needs: Yes Female Reproductive History Menstrual Age of Menarche: 13 Review of Systems Const All systems reviewed & are unremarkable except as noted in HPI and below Reports no additional complaints Resp Reports no additional complaints GI Reports no additional complaints Reports as per HPI Musc Reports no additional complaints Physical Exam Telemedicine evaluation Appropriate responses Regular breathing rate and rhythm HEENT Head: Yes normal to inspection Ears: hearing grossly normal bilaterally Eyes General: appearance normal, both eyes and all related structures Neck Neck: Yes normal visual inspection Chest Chest palpation & inspection: normal inspection of the chest Resp Effort & Inspection: normal respiratory effort and able to speak in complete sentences Assessment & Plan Assessment & Plan (1) Renal calculus, right: Code(s): N20.0 - Calculus of kidney Plan Six month follow-up ultrasound Patient Instructions: Imaging studies, laboratory and physical exam results were discussed and reviewed in detail. No major barriers to patient understanding were identified. An opportunity to ask questions regarding the treatment plan was provided. All questions were answered. The patient expressed understanding and agreement with the above treatment plan. The patient is aware they should contact our office by phone for worsening of their current condition or the appearance of new urologic symptoms. Compliance is encouraged with any medications and followup testing that is ordered. It is a privilege to participate in the urologic care of your patient. If you have any questions or concerns regarding treatment for the above conditions, or other urologic issues, please do not hesitate to contact me. The office telephone contact is [phone]. This note is constructed using voice recognition software. While every effort has been made to ensure accuracy business transformation consultant errors may have been included. Yours sincerely, Dr Armani Armijo MD, [facility] [place] - Urology Providers of Expert, Compassionate Care for the Genitourinary System Telehealth Telehealth Location of provider rendering services: practice address Location of patient: address on file Patient Identification confirmed using: Name, : Yes Telehealth method: voice only Patient verbally consented to treatment: Yes Patient verbally consented to billing insurance company: Yes Patient informed of any privacy concerns related to visit: Yes Coding Level of Care Code Tele Est Pt Level 3 (75152) Diagnoses Renal calculus, right N20.0
== END 2022-11-14 15:46 | disposition home or self-care (01) ==
LOC: HO.HUSH 14:12
PROVIDERS: PCP Internal Medicine; Visit Provider Urology
DX: N20.0 Calculus of kidney (principal)
CPT/HCPCS: 99213

== ENCOUNTER → 2022-11-14 14:12 | Outpatient (BNVA) | payer OTHER, SELFPAY | PROVIDERS: PCP Internal Medicine; Visit Provider Urology ==

== ENCOUNTER 2023-01-25 07:30 | Outpatient (REF) | payer OTHER, SELFPAY ==
--- NOTE | ~2023-01-25 | MM_ITS ---
EXAMINATION: MM DIAGNOSTIC DIGITAL BREAST TOMOSYNTHESIS, BILATERAL US BREAST LIMITED, LEFT MAMMOGRAPHY: CLINICAL INFORMATION: Question nodule inner aspect, posterior depth, on left CC view. Follow-up to ensure stability. COMPARISON: Mammography: 02/09/2022 mammography and ultrasound. 02/05/2022 . 01/16/2022 . 01/14/2021 mammography. TECHNIQUE: Digital breast tomosynthesis is performed in both the craniocaudal and mediolateral oblique views along with computer-aided detection (CAD). Synthesized 2D images are generated from the tomosynthesis. In addition full-field left mediolateral 3-D view was obtained, as well as spot compression 3-D left CC view, full field CC views rolled medial and rolled lateral. FINDINGS: There are scattered areas of fibroglandular density (ACR BI-RADS breast composition Category b). On the 90 degree lateral left projection, a correlate is seen for in the asymmetric density in the posteromedial left breast on the CC projection. This has the appearance of a benign island of normal parenchyma. Rescanning on ultrasound demonstrated no additional abnormality in the medial one half of the left breast. Upon reviewing old studies, this focal asymmetric density was present on remote exams and appears unchanged, and again, is probably benign. Otherwise, there are no suspicious masses, suspicious grouped calcifications, or regions of architectural distortion in either breast. ULTRASOUND: CLINICAL INFORMATION: As above. COMPARISON: None TECHNIQUE: Targeted sonographic evaluation was performed using a high frequency linear transducer. Attention was given to the left half of the left breast. Selected archived documentation. FINDINGS: LEFT BREAST: There is a mixture of fatty and fibroglandular tissue. No suspicious mass is seen. There is no pathologic acoustic shadowing. There is no axillary adenopathy. No correlate to the 2 view asymmetry as detailed above. MM/MM tomosynthesis diagnostic BI IMPRESSION: No findings suspicious for malignancy in either breast. 2 view asymmetry in the medial posterior mid breast is unchanged, likely benign, and has an appearance on the ML projection similar to remote exams. No correlate on second view ultrasound. This remains probably benign, and is most likely a benign island of tissue, and 1 year follow-up recommended to ensure stability. OVERALL ASSESSMENT: Mammography: BI-RADS 3 - Probably benign finding(s) - 12 month follow-up suggested Ultrasound: BI-RADS 3 - Probably benign finding(s) - 12 month follow-up suggested RECOMMENDATION: 12 month diagnostic follow up Results were provided to the patient at time of visit by the technologist. This patient's information was entered into a reminder system with a target due date for their next mammogram.
== END 2023-01-25 07:31 | disposition home or self-care (01) ==
LOC: HO.MAMMO 07:30
PROVIDERS: PCP Internal Medicine; Visit Provider Internal Medicine
DX: N64.89 Other specified disorders of breast (principal)
CPT/HCPCS: 76642; 77062; 77066

== ENCOUNTER → 2023-01-25 07:30 | Outpatient (BNV) | payer OTHER, SELFPAY | PROVIDERS: PCP Internal Medicine; Visit Provider Radiology Diagnostic Radiology | DX: R92.323 Mammographic fibroglandular density, bilateral breasts (principal); R92.312 Mammographic fatty tissue density, left breast | CPT/HCPCS: 76642; 77062; 77066 ==

== ENCOUNTER 2023-03-29 10:49 | Outpatient (AMB) | payer OTHER, SELFPAY ==
--- NOTE | 2023-03-29 10:50 | MHC.PC.OV ---
Vital Signs 03/29/23 10:51 Height 5 ft 6 in Weight 179 lb 4 oz BMI 28.9 BP 124/86 Blood Pressure Location Lt brachial Position Sitting Pulse 102 H Pulse Source Pulse Oximeter Pulse Oximetry (%) 98 Oxygen Delivery Method Room Air Intake Visit Reasons: swollen nymph nodes Pointer Machine Operator Required: No Accompanied by: Self / Same As Patient Allergies oxycodone [OXYCODONE] Allergy (Intermediate, Verified 03/29/23 10:51) nausea/vomiting/dizziness shrimp Adverse Reaction (Intermediate, Verified 03/29/23 10:51) NAUSEA Tobacco use date assessed: 03/29/23 Dental Screening Dental Screen Date: 03/29/23 Did you have a dental visit in the last 12 months?: Yes Did you have a dental problem in the last 6 months where you did not have access to dental care?: No Was dental information given to patient?: Patient has dentist HPI HPI Comments History of Present Illness Details 48 year old female past medical history significant for renal calculus, anxiety, depression and left breast fibroadenoma. Patient of Dr. Briceno patient presents today for same-day visit. Patient states has lump on the back of her head 2 days ago, tender to touch, patient also reports possible inflamed lymph node. On examination patient has multiple red raised annular splotches to back of head, small 0.25 cm pc node noted to left neck. Patient denies any fever, chills, cough shortness of breath PFSH Medical History Anxiety Breast mass, left COVID-19 Depression Fibroadenoma History of menorrhagia Overweight (BMI 25.0-29.9) Surgical History Hx of colonoscopy Hx of breast biopsy H/O prior ablation treatment Hx of tubal ligation Family History Mother Mental health disorder Father No problems noted. Social History Household Members: Family Housing: House Do you presently have visiting nurse or other home services: No Alcohol intake: never Patient Tobacco Use Status: Never used Tobacco e-Cigarette/Vaping Use: Never Used Second Hand Smoke Exposure: No service: No Current occupational status: employed Gender identity: Female Cognitive needs: No Hearing needs: No Vision needs: Yes Female Reproductive History Menstrual Age of Menarche: 13 Questionnaire PHQ-9 Over the last 2 weeks, how often have you been bothered by any of the following problems? 1. Little interest or pleasure in doing things: not at all 2. Feeling down, depressed, or hopeless: not at all 3. Trouble falling or staying asleep, or sleeping too much: not at all 4. Feeling tired or having little energy: not at all 5. Poor appetite or overeating: not at all 6. Feeling bad about yourself - or that you are a failure or have let yourself or your family down: not at all 7. Trouble concentrating on things, such as reading the newspaper or watching television: not at all 8. Moving or speaking so slowly that other people could have noticed. Or the opposite - being so fidgety or restless that you have been moving around a lot more than usual: not at all 9. Thoughts that you would be better off or of hurting yourself in some way: not at all Total score: 0 88384 - PHQ-9 Billing: Yes Source: Developed by Drs. Murtaza Taylor, Denice Bell, Lobo Todd and colleagues, with an educational lisa from [employer]. Thrive Questionnaire Date Thrive assessed: 03/29/23 I am a: Patient What is your living situation today?: I have a steady place to live Within the past 12 months, did the food you bought not last and you didn't have the money to get more?: Never true Within the past 12 months, did you worry whether your food would run out before you got money to buy more?: Never true Do you have trouble paying for medicines?: No Do you have trouble getting transportation to medical appointments?: No Do you have trouble paying your heating and electricity bill?: No Do you have trouble taking care of your child, family member or friend?: No Do you have trouble with day-to-day activities such as bathing, preparing meals, shopping, managing finances, etc.?: No Are you currently unemployed and looking for a job?: No Are you interested in more education?: No Please select the resources that you would like help with: None Currently or been in a relationship where the following occur: no concerns reported AUDIT C Alcohol Use Questionnaire (AUDIT-C) 1. How often do you have a drink containing alcohol?: Never 3. How often do you have six or more drinks on one occasion?: Never Total Score: 0 ANTOINETTE-7 AMB Questionnaire ANTOINETTE-7 Date ANTOINETTE - 7 assessed: 03/29/23 Feeling nervous, anxious, or on edge: 0 = Not at all Not being able to stop or control worryin = Not at all Worrying too much about different things: 0 = Not at all Trouble relaxin = Not at all Being so restless that it is hard to sit still: 0 = Not at all Becoming easily annoyed or irritable: 0 = Not at all Feeling afraid as if something awful might happen: 0 = Not at all Total ANTOINETTE-7 score (0-4 normal; 5-9 mild; 10-14 moderate; 15-21 severe): 0 Source: Developed by Drs. Murtaza Taylor, Denice Bell, Lobo Todd and colleagues, with an educational lisa from [employer]. ANTOINETTE-7 Assessment Billing ANTOINETTE-7 Assessment Tool: ANTOINETTE-7 Assessment 80987 Review of Systems Const Denies chills, Denies fatigue, Denies fever(s) and Denies poor appetite Eyes Denies no additional complaints ENT Reports Normal hearing present Card Denies chest pain, Denies syncope, Denies rapid heart rate and Denies dyspnea Resp Denies cough and Denies dyspnea GI Denies change in stool character, Denies constipation, Denies diarrhea, Denies nausea and Denies vomiting Denies urinary frequency, Denies dysuria and Denies urinary urgency Skin/Breast Details: scalp rash. Neuro Reports Normal hearing present, Denies confusion and Denies syncope Psych Denies confusion Endo Denies fatigue Physical exam (Primary Care) Vital Signs: Last Vital Signs Pulse 102 H 03/29/23 10:51 BP 124/86 03/29/23 10:51 Pulse Ox 98 03/29/23 10:51 Oxygen Delivery Method Room Air 03/29/23 10:51 BMI result Body Mass Index 28.9 Tobacco/Smoking Status: Tobacco use Status Tobacco use date assessed 03/29/23 03/29/23 10:54 Patient Tobacco Use Status Never used Tobacco 03/29/23 10:54 e-Cigarette/Vaping Use Never Used 03/29/23 10:54 PHQ-9: PHQ-9 Score PHQ-9: Total score 0 03/29/23 11:07 Thrive Assessment: Date of Thrive Assessment Date Thrive assessed 03/29/23 03/29/23 10:59 Currently or been in a relationship where the following occur: no concerns reported Const General: No confusion Orientation/consciousness: No confusion HENMT Head: Yes normocephalic and Yes atraumatic Eyes Conjunctivae: conjunctivae normal Chest Chest palpation & inspection: normal inspection of the chest Resp Effort & Inspection: normal respiratory effort Auscultation: clear to auscultation bilaterally, no crackles, no rhonchi and no wheezes Cardio Rate: regular rate Rhythm: regular rhythm Heart sounds: S1 normal heart sound present and S2 normal heart sound present GI Inspection: Yes normal to inspection Neuro General: No confusion Cranial nerves: Yes Normal hearing present Extrem General: No edema Assessment and Plan Assessment & Plan (1) Folliculitis: Code(s): L73.9 - Follicular disorder, unspecified Plan: Will send cephalexin 500 mg b.i.d. x7 days for likely folliculitis (2) Lump in neck: Code(s): R22.1 - Localized swelling, mass and lump, neck Plan: Likely reactive inflammation of PC lymph node from scalp infection. Antibiotics sent for folliculitis. No improvement of symptoms following antibiotic treatment please follow-up with PCP for further evaluation with ultrasound. Medications: New cephalexin 500 mg PO BID 14 caps 0RF L73.9 - Follicular disorder, unspecified, R22.1 - Localized swelling, mass and lump, neck Coding Level of Care Code Est Pt Level 3 (93553) Diagnoses Folliculitis L73.9 Lump in neck R22.1 Additional Codes ANTOINETTE-7 Assessment Billing - ANTOINETTE-7 Assessment Tool: ANTOINETTE-7 Assessment [id number] ([id number])
[2023-03-29 10:51] VITALS: BP 124/86; PULSE 102; O2SAT 98; BMI 28.9
== END 2023-03-29 11:57 | disposition home or self-care (01) ==
PROVIDERS: PCP Internal Medicine; Visit Provider Nurse Practitioner Family
DX: L73.9 Follicular disorder, unspecified (principal); R22.1 Localized swelling, mass and lump, neck
CPT/HCPCS: 99213

== ENCOUNTER 2023-06-06 11:21 | Outpatient (REF) | payer OTHER, SELFPAY ==
--- NOTE | ~2023-06-06 | US_ITS ---
EXAMINATION: US RENAL BILATERAL CLINICAL INFORMATION: Calculus of kidney. COMPARISON: Renal ultrasound 08/22/2022 and 02/22/2022. CT abdomen and pelvis 10/14/2014. TECHNIQUE: Real-time imaging of the kidneys. Limited visualization due to bowel gas. FINDINGS: RIGHT KIDNEY: 10.8 x 6.6 x 5.3 cm (SAG x AP x TRV). No hydronephrosis. There is a lower pole 0.4 cm calculus. Renal cortical thickness is normal. Limited visualization. LEFT KIDNEY: 11.5 x 6.3 x 4.8 cm (SAG x AP x TRV). No hydronephrosis. No renal calculi. Renal cortical thickness is normal. Limited visualization. US/US renal BI IMPRESSION: Right lower pole 0.4 cm calculus. No hydronephrosis.
== END 2023-06-06 11:22 | disposition home or self-care (01) ==
LOC: HO.US 11:21
PROVIDERS: PCP Internal Medicine; Visit Provider Urology
DX: N20.0 Calculus of kidney (principal)
CPT/HCPCS: 76775

== ENCOUNTER 2023-07-23 08:44 | Outpatient (AMB) | payer OTHER, SELFPAY ==
--- NOTE | 2023-07-23 08:53 | MHC.OFFVIS ---
Intake Intake Visit Reasons: 6m/US(set) Intake Note: Patient is present for follow up nephrolithiasis Imagin06/06/23 Urology Medications: none Blood Thinner: none Toe Stapler Required: No Accompanied by: Self / Same As Patient Allergies oxycodone [OXYCODONE] Allergy (Intermediate, Verified 07/23/23 09:09) nausea/vomiting/dizziness shrimp Adverse Reaction (Intermediate, Verified 07/23/23 09:09) NAUSEA Medication List - Last Reconciled 07/23/23 by ANT Johnson No Known Home Meds HPI HPI Comments History of Present Illness Details Vanda is a pleasant 47-year-old female patient of Dr. Briceno. She has a past medical history of anxiety, depression, and nephrolithiasis. She presents to the office today for follow-up of her nephrolithiasis. Of note, patient underwent right-sided ureteroscopy with Dr. Armijo 11/04. Recent renal imaging results reviewed with the patient today. Bilateral kidneys with no hydronephrosis. Right kidney with lower pole 0.4 cm calculus. In discussion with the patient today she reports having had significant amount of pain after her procedure in October. She endorses to be drinking plenty of water daily. When asked she denies urinary urgency, urinary frequency, incontinence, nocturia, hematuria, dysuria, foul-smelling urine, changes to urinary stream, fever, and or chills. She is happy with her current voiding parameters. In office urinalysis results reviewed with the patient today. She otherwise offers no issues or concerns at this time. Discussed surveillance imaging. Discussed risks and benefits of both surveillance imaging versus surgical intervention. All questions were answered. [facility] Medical History Fibroadenoma Breast mass, left COVID-19 Overweight (BMI 25.0-29.9) History of menorrhagia Anxiety Depression Surgical History Hx of colonoscopy Hx of breast biopsy H/O prior ablation treatment Hx of tubal ligation Family History Mother Mental health disorder Father No problems noted. Social History Household Members: Family Housing: House Do you presently have visiting nurse or other home services: No Alcohol intake: never Patient Tobacco Use Status: Never used Tobacco e-Cigarette/Vaping Use: Never Used Second Hand Smoke Exposure: No service: No Current occupational status: employed Gender identity: Female Cognitive needs: No Hearing needs: No Vision needs: Yes Female Reproductive History Menstrual Age of Menarche: 13 Review of Systems Const Reports no additional complaints Eyes Reports no additional complaints ENT Reports no additional complaints Card Reports no additional complaints Resp Reports no additional complaints GI Reports no additional complaints Reports as per HPI Musc Reports no additional complaints Neuro Reports no additional complaints Psych Reports as per HPI Endo Reports no additional complaints Dino/Lymph Reports no additional complaints Aller/Immun Reports no additional complaints Physical Exam Const General: cooperative, healthy appearing, comfortable, no acute distress, well developed, alert and awake Orientation/consciousness: patient oriented x3 Limitations: no limitations HEENT Head: Yes normal to inspection, Yes normocephalic and Yes atraumatic Ears: hearing grossly normal bilaterally Eyes General: appearance normal, both eyes and all related structures Neck Neck: Yes normal visual inspection and Yes trachea midline Chest Chest palpation & inspection: normal inspection of the chest Resp Effort & Inspection: normal respiratory effort and able to speak in complete sentences Cardio Rate: regular rate General: Yes no CVA tenderness Back/Spine/Pelvis Back: no CVA tenderness Neuro General: patient oriented x3 Extrem General: Yes normal to inspection Psych Appearance: grossly normal and well kempt Mental Status: mental status grossly normal Speech and movement: Normal speech and movement present and Clear speech present Affect: normal affect Attitude: cooperative Thought process: Normal thought process present Thought content: Normal thought content present Insight: Fair insight present (Psych) Judgement: Fair judgement present (Psych) Results AMB Urinalysis, Automated UA Leukoctes 15 Elieser/uL Last Edit by Seun Laura on 07/23/23 09:05 UA Nitrite Last Edit by Seun Laura on 07/23/23 09:05 UA Urobilinogen 0.2 mg/dL Last Edit by Seun Laura on 07/23/23 09:05 UA Protein 15 mg/dL Last Edit by Seun Laura on 07/23/23 09:05 UA pH 6.0 Last Edit by Seun Laura on 07/23/23 09:05 UA Blood 0 Zheng/uL Last Edit by Alvaradosavitareinaldo Garvinjavier on 07/23/23 09:05 UA Specific [place] 1.030 Last Edit by Alvaradofeliz Virgiejavier on 07/23/23 09:05 UA Ketone Negative Last Edit by Seun Virgiejavier on 07/23/23 09:05 UA Bilirubin 0 mg/dL Last Edit by Seun Virgiejavier on 07/23/23 09:05 UA Glucose 0 mg/dL Last Edit by Seun Virgiejavier on 07/23/23 09:05 Results Reviewed Results Reviewed: Laboratory Last Values Urine pH (Auto) 6.0 07/23/23 08:59 Specific [place] (Auto) 1.030 07/23/23 08:59 Urine Protein (Auto) 15 mg/dL 07/23/23 08:59 Glucose (UA)(Auto) 0 mg/dL 07/23/23 08:59 Urine Ketones (Auto) Negative 07/23/23 08:59 Urine Blood (Auto) 0 Zheng/uL 07/23/23 08:59 Urine Bilirubin (Auto) 0 mg/dL 07/23/23 08:59 Urine Urobilinogen (Auto) 0.2 mg/dL 07/23/23 08:59 Leukocyte Esterase (Auto) 15 Elieser/uL 07/23/23 08:59 Date of Service: 06/06/23 EXAMINATION: US RENAL BILATERAL FINDINGS: RIGHT KIDNEY: 10.8 x 6.6 x 5.3 cm (SAG x AP x TRV). No hydronephrosis. There is a lower pole 0.4 cm calculus. Renal cortical thickness is normal. Limited visualization. LEFT KIDNEY: 11.5 x 6.3 x 4.8 cm (SAG x AP x TRV). No hydronephrosis. No renal calculi. Renal cortical thickness is normal. Limited visualization. IMPRESSION: Right lower pole 0.4 cm calculus. No hydronephrosis. Assessment & Plan Assessment & Plan (1) Renal calculus, right: Code(s): N20.0 - Calculus of kidney Plan In office urinalysis results reviewed with the patient today; as noted above. Recent renal ultrasound results reviewed with the patient today; as noted above. Discussed at length potential causes of nephrolithiasis. Discussed surveillance monitoring as well as further metabolic workup with 24 hour urine collection and labs Discussed, educated, and stressed the importance of drinking plenty of water daily. Continue adding 1 oz of lemon juice to water daily. Start vitamin B6 as discussed and prescribed. Patient currently denies any bothersome urinary issues or concerns. She is happy with her current voiding parameters. Will obtain renal ultrasound in 1 year. Follow-up in 1 year with imaging to be completed prior; or sooner with any issues, concerns, or questions. Orders: Orders AMB Urinalysis Automated Today Z13.9 - Encounter for screening, unspecified US renal BI 1 Year N20.0 - Calculus of kidney Medications: New pyridoxine (vitamin B6) 100 mg PO DAILY 90 days 90 tabs 1RF Patient Instructions: The patient had an opportunity to ask questions regarding the treatment plan. All questions were answered. Physical exam, labs, and imaging were discussed and reviewed in detail. As well as risks, benefits, and discussion of treatment choices. No major barriers to understanding were identified. The patient expressed understanding and agreement with the above treatment plan. The patient was made aware they should contact our office by phone for worsening of their current condition, the appearance of new symptoms, or with any questions or concerns. Compliance is encouraged with any medications and follow up testing that is ordered. It is a privilege to be allowed the opportunity to participate in? your urological care.? Again, if you have any questions or concerns If you have any questions or concerns please do not hesitate to contact me. The office is [phone]. This note is constructed using voice recognition software. While every effort has been made to ensure accuracy test borer errors may have been included. Yours sincerely, ANT Johnson Coding Level of Care Code Est Pt Level 4 (67665) Diagnoses Renal calculus, right N20.0
== END 2023-07-23 09:25 | disposition home or self-care (01) ==
PROVIDERS: PCP Internal Medicine; Visit Provider Nurse Practitioner Family
DX: Z13.9 Encounter for screening, unspecified (principal); N20.0 Calculus of kidney
CPT/HCPCS: 99214

== ENCOUNTER → 2023-07-23 08:44 | Outpatient (BNVA) | payer OTHER, SELFPAY | PROVIDERS: PCP Internal Medicine; Visit Provider Nurse Practitioner Family | DX: N20.0 Calculus of kidney (principal) | CPT/HCPCS: 81003 ==

== ENCOUNTER 2023-08-15 11:07 | Outpatient (REF) | payer OTHER, SELFPAY | END 2023-08-15 11:08 | disposition home or self-care (01) | LOC: HO.MAMMO 11:07 | PROVIDERS: PCP Internal Medicine; Visit Provider Internal Medicine | DX: Z13.89 Encounter for screening for other disorder (principal) ==

== ENCOUNTER 2023-09-26 09:02 | Outpatient (AMB) | payer OTHER, SELFPAY ==
[2023-09-26 09:07] VITALS: BP 100/62; BMI 29.5
--- NOTE | 2023-09-26 09:07 | A.OFFVIS_ITS ---
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 Doing well with concerns: slight vaginal itching. She tries to eat healthy and stays active with exercise. Regular monthly menses, skipping a week or so, hx. TL. Currently is sexually active. STI screening offered; she accepts. Denies family history of breast, ovarian or colon cancer. Last pap smear 2022, negative. Mammogram: 2022. Colonscopy is up to date. [facility] Medical History Fibroadenoma Breast mass, left COVID-19 Overweight (BMI 25.0-29.9) History of menorrhagia Anxiety Depression Surgical History Hx of colonoscopy Hx of breast biopsy H/O prior ablation treatment Hx of tubal ligation Family History Mother Mental health disorder Father No problems noted. Social History Household Members: Family Housing: House Do you presently have visiting nurse or other home services: No Alcohol intake: never Patient Tobacco Use Status: Never used Tobacco e-Cigarette/Vaping Use: Never Used Second Hand Smoke Exposure: No service: No Current occupational status: employed Gender identity: Female Cognitive needs: No Hearing needs: No Vision needs: Yes Female Reproductive History Menstrual Age of Menarche: 13 Duration of menses: 3-5 days Date of last menstrual period: 08/24/23 control method: permanent sterilization Total pregnancies: 4 Full term: 3 Number of Living Children: 3 Ab spontaneous: 1 Date of last pap smear: 05/02/22 (negative) History of abnormal pap smear: No Date of Mammogram: 01/25/23 Review of Systems Const All systems reviewed & are unremarkable except as noted in HPI and below Reports as per HPI Eyes Reports no additional complaints ENT Reports no additional complaints Card Reports no additional complaints Resp Reports no additional complaints GI Reports as per HPI and Reports no additional complaints Reports as per HPI Musc Reports no additional complaints Skin/Breast Reports as per HPI Neuro Reports no additional complaints Psych Reports no additional complaints Endo Reports no additional complaints Dino/Lymph Reports no additional complaints Aller/Immun Reports no additional complaints Physical Exam Const General: cooperative, healthy appearing, no acute distress, well developed and alert Orientation/consciousness: patient oriented x3 HEENT Head: Yes normal to inspection Eyes General: appearance normal, both eyes and all related structures Neck Neck: Yes normal visual inspection Thyroid: Thyroid normal Chest Chest palpation & inspection: normal inspection of the chest and other (no puckering, dimpling, peau de orange, retraction, discharge, masses) Breast/axilla inspection: normal inspection of the breasts Breast/axilla palpation: normal palpation of the breasts Resp Effort & Inspection: normal respiratory effort GI Inspection: Yes normal to inspection Palpation (GI): Soft to palpation Rectal Exam - Female: deferred General: Yes bladder normal to palpation External Female Exam: normal external appearance and normal appearance of the urethra Speculum Exam - Vagina: normal appearance of the vagina, normal palpation and normal vaginal discharge Speculum Exam - Cervix: normal appearance of the cervix and normal palpation Bimanual exam- vagina & uterus: normal bimanual exam, normal palpation, uterine size normal, bladder normal to palpation, normal palpation and non-tender Bimanual Exam- Adnexa, other: no masses Skin General skin exam: no rashes or lesions noted Rashes: no rashes Neuro General: patient oriented x3 Cognition (Neuro): normal cognition Extrem General: Yes normal to inspection Psych Attitude: cooperative Thought process: Normal thought process present Assessment & Plan Assessment & Plan (1) Encounter for well woman exam with routine gynecological exam: Code(s): Z01.419 - Encounter for gynecological examination (general) (routine) without abnormal findings Category: Medical (2) Vaginal itching: Code(s): N89.8 - Other specified noninflammatory disorders of vagina Plan Discussed: Current recommendations for pap smears per ASCCP guidelines. Breast awareness and periodic breast exams. Maintain a healthy lifestyle including a well balanced diet and routine exerc ise. BV and GC chlamydia obtained, await results for plan of care. Monitor menstrual cycles, report any unscheduled bleeding, bleeding episodes <24 days apart or heavy/prolonged menstrual bleeding. Call the office for a follow up for any concerns. Mammogram yearly. Colonoscopy >45, or at risk sooner-completed. Patient verbalizes understanding and agrees to the plan of care. She was given opportunity to ask questions and all questions were answered to the best of my ability. RTO in one year for annual network development coordinator examination. This note is constructed using voice recognition software. While every effort has been made to ensure accuracy, database administrator errors may have been included. Orders: Orders HIV Ab/Ag Today Z20.2 - Contact with and (suspected) exposure to infections with a predominantly sexual mode of transmission Hepatitis C Antibody Reflex Today Z20.2 - Contact with and (suspected) exposure to infections with a predominantly sexual mode of transmission Hepatitis B Core Antibody Today Z20.2 - Contact with and (suspected) exposure to infections with a predominantly sexual mode of transmission Syphilis Screen Today Z20.2 - Contact with and (suspected) exposure to infections with a predominantly sexual mode of transmission Coding Level of Care Code Est Pt Prev Care 40-64y(30844) Diagnoses Encounter for well woman exam with routine gynecological exam Z01.419 Vaginal itching N89.8
== END 2023-09-26 09:39 | disposition home or self-care (01) ==
PROVIDERS: PCP Internal Medicine; Visit Provider Advanced Practice Midwife
DX: Z01.419 Encounter for gynecological examination (general) (routine) without abnormal findings (principal); N89.8 Other specified noninflammatory disorders of vagina
CPT/HCPCS: 99396

== ENCOUNTER 2023-09-26 09:02 | Outpatient (REF) | payer OTHER, SELFPAY | END 2023-09-26 09:03 | disposition home or self-care (01) | LOC: HO.LNP 09:02 | PROVIDERS: PCP Internal Medicine; Visit Provider Advanced Practice Midwife | DX: Z13.89 Encounter for screening for other disorder (principal) ==

== ENCOUNTER 2023-09-26 09:45 | Outpatient (REF) | payer OTHER, SELFPAY ==
[2023-09-26 11:44] LABS: Syphilis Screen Nonreactive (Nonreactive)
[2023-09-26 11:45] LABS: HBc Num1 0.29 S/CO (0.00-0.79); HIV AB/AG Nonreactive (Nonreactive); HIV Num 1 0.09 S/CO (0.00-0.99); Hepatitis B Core Antibody Nonreactive (Nonreactive); ~HepC Num1 0.17 S/CO (0.00-0.79); ~Hepatitis C Antibody Nonreactive (Nonreactive)
[2023-09-27 03:13] LABS: CT PCR NOT DETECTED (Not Detect.); NG PCR NOT DETECTED (Not Detect.)
[2023-09-27 10:34] LABS: Bacterial Vaginosis PCR NEGATIVE (Negative); Candida Group PCR NOT DETECTED (Not Detect); Candida glab krusei PCR NOT DETECTED (Not Detect); Trichomonas vaginalis PCR NOT DETECTED (Not Detect)
== END 2023-09-26 09:46 | disposition home or self-care (01) ==
LOC: HO.LAB 09:45
PROVIDERS: PCP Internal Medicine; Visit Provider Advanced Practice Midwife
DX: Z20.2 Contact with and (suspected) exposure to infections with a predominantly sexual mode of transmission (principal); N89.8 Other specified noninflammatory disorders of vagina
CPT/HCPCS: 0352U; 0353U; 86704; 86780; 86803; 87389

== ENCOUNTER 2024-02-05 10:45 | Outpatient (REF) | payer OTHER, SELFPAY ==
--- NOTE | ~2024-02-05 | MM_ITS ---
EXAMINATION: MM DIAGNOSTIC DIGITAL BREAST TOMOSYNTHESIS, left breast to follow up CLINICAL INFORMATION: Two-year follow-up for asymmetry in the retroareolar region of the left breast on CC view without prior sonographic correlate. COMPARISON: Mammography: Comparison is made with relevant prior exams. TECHNIQUE: Digital breast mammography with tomosynthesis is performed in both the craniocaudal and mediolateral oblique views along with computer-aided detection (CAD). FINDINGS: There are scattered areas of fibroglandular density (ACR BI-RADS breast composition Category b). Previously seen asymmetry in the retroareolar region of the left breast posterior depth on CC view is not significantly changed from prior mammograms dating back for 2 years and therefore benign. No prior similar To correlate was seen. There are no significant masses, abnormal calcifications, or other abnormalities. Results are provided to the patient at time of visit by the technologist. MM/MM tomosynthesis diagnostic BI IMPRESSION: No mammographic evidence of malignancy. ASSESSMENT: BI-RADS BI-RADS 2 - Benign Findings RECOMMENDATION: 1 year F/U This patient's information was entered into a reminder system with a target due date for their next mammogram. Electronically signed by: Antoinette Harrison DO 02/05/2024 01:26 PM EDT
== END 2024-02-05 10:46 | disposition home or self-care (01) ==
LOC: HO.MAMMO 10:45
PROVIDERS: PCP Internal Medicine; Visit Provider Internal Medicine
DX: N64.89 Other specified disorders of breast (principal)
CPT/HCPCS: 77062; 77066

== ENCOUNTER → 2024-02-05 10:48 | Outpatient (BNV) | payer OTHER, SELFPAY | PROVIDERS: PCP Internal Medicine; Visit Provider Internal Medicine | DX: R92.323 Mammographic fibroglandular density, bilateral breasts (principal) | CPT/HCPCS: 77062; 77066 ==

== ENCOUNTER 2024-04-07 09:02 | Outpatient (AMB) | payer OTHER, SELFPAY ==
[2024-04-07 09:03] VITALS: BP 110/72; PULSE 83; O2SAT 97; BMI 29.9
--- NOTE | 2024-04-07 09:03 | A.OFFPC_ITS ---
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 May repeat x 1 dose after 10 to 15 minutes if needed. 2 days Tobacco use date assessed: 04/07/24 Dental Screening Dental Screen Date: 04/07/24 Did you have a dental visit in the last 12 months?: Yes Did you have a dental problem in the last 6 months where you did not have access to dental care?: No Was dental information given to patient?: Patient has dentist HPI PE HPI Details Patient comes in today for her annual physical examination States that she feels okay She denies any headaches or dizziness Denies any exertional chest pains, no SOB; states that she's had a couple of chest pains/pressure over the past few months but these were when she was feeling very stressed and anxious No nausea/vomiting, no abdominal pain No change in bowel habits noted Denies any acute urinary symptoms She is up-to-date with all of her cancer screenings - her mammogram was last done a couple of months ago in 01/2024 and is due for repeat in 1 year Her gynecology exam and pap smear were last done a couple of years ago in April 2022 and she is scheduled for her next gynecology exam in September 2024 She had her screening colonoscopy done in 02/2022 and is due for repeat in 2031 (10 yr recall) [facility] Medical History (Updated 04/07/24 @ 09:46 by Danie Briceno MD) Vitamin D deficiency Fibroadenoma Breast mass, left COVID-19 Overweight (BMI 25.0-29.9) History of menorrhagia Anxiety Depression Surgical History Hx of colonoscopy Hx of breast biopsy H/O prior ablation treatment Hx of tubal ligation Family History Mother Mental health disorder Father No problems noted. Social History Household Members: Family Housing: House Do you presently have visiting nurse or other home services: No Alcohol intake: never Patient Tobacco Use Status: Never used Tobacco e-Cigarette/Vaping Use: Never Used Second Hand Smoke Exposure: No service: No Current occupational status: employed Gender identity: Female Cognitive needs: No Hearing needs: No Vision needs: Yes Female Reproductive History Menstrual Age of Menarche: 13 Questionnaire PHQ-9 Over the last 2 weeks, how often have you been bothered by any of the following problems? 1. Little interest or pleasure in doing things: not at all 2. Feeling down, depressed, or hopeless: not at all 3. Trouble falling or staying asleep, or sleeping too much: not at all 4. Feeling tired or having little energy: not at all 5. Poor appetite or overeating: not at all 6. Feeling bad about yourself - or that you are a failure or have let yourself or your family down: not at all 7. Trouble concentrating on things, such as reading the newspaper or watching television: not at all 8. Moving or speaking so slowly that other people could have noticed. Or the opposite - being so fidgety or restless that you have been moving around a lot more than usual: not at all 9. Thoughts that you would be better off or of hurting yourself in some way: not at all Total score: 0 Depression Screening Interpretation: Negative Depression Screening Done: Yes 90817 - PHQ-9 Billing: Yes Source: Developed by Drs. Murtaza Taylor, Denice Bell, Lobo Todd and colleagues, with an educational lisa from [employer]. Thrive Questionnaire Date Thrive assessed: 04/07/24 I am a: Patient What is your living situation today?: I have a steady place to live Within the past 12 months, did the food you bought not last and you didn't have the money to get more?: I choose not to answer this question Within the past 12 months, did you worry whether your food would run out before you got money to buy more?: I choose not to answer this question Do you have trouble paying for medicines?: No Do you have trouble getting transportation to medical appointments?: No Do you have trouble paying your heating and electricity bill?: No Do you have trouble taking care of your child, family member or friend?: No Do you have trouble with day-to-day activities such as bathing, preparing meals, shopping, managing finances, etc.?: No Are you currently unemployed and looking for a job?: Yes Are you interested in more education?: No Please select the resources that you would like help with: None Currently or been in a relationship where the following occur: No concerns reported THRIVE Score: 0 AUDIT C Alcohol Use Questionnaire (AUDIT-C) 1. How often do you have a drink containing alcohol?: 2-4 times a month 2. How many drinks containing alcohol do you have on a typical day when you are drinking?: 1 or 2 3. How often do you have six or more drinks on one occasion?: Never Total Score: 2 Score Reviewed/Action Taken: Yes ANTOINETTE-7 AMB Questionnaire ANTOINETTE-7 Date ANTOINETTE - 7 assessed: 04/07/24 Feeling nervous, anxious, or on edge: 0 = Not at all Not being able to stop or control worryin = Not at all Worrying too much about different things: 1 = Several days Trouble relaxin = Not at all Being so restless that it is hard to sit still: 0 = Not at all Becoming easily annoyed or irritable: 0 = Not at all Feeling afraid as if something awful might happen: 0 = Not at all Total ANTOINETTE-7 score (0-4 normal; 5-9 mild; 10-14 moderate; 15-21 severe): 1 Source: Developed by Drs. Murtaza Taylor, Denice Bell, Lobo Todd and colleagues, with an educational lisa from [employer]. Review of Systems Const Denies chills, Denies fatigue, Denies fever(s), Denies headache(s) and Denies malaise Eyes Denies blurry vision, Denies change in vision, Denies irritation and Denies itchy eyes ENT Denies dysphagia, Denies dizziness, Denies otalgia, Denies headache(s), Denies nasal congestion, Denies neck pain, Denies odynophagia, Denies sinus pain and Denies sore throat Card Denies chest pain, Denies rapid heart rate, Denies irregular heart rhythm, Denies palpitations and Denies dyspnea Resp Denies chest congestion, Denies cough, Denies dyspnea and Denies wheezing GI Denies abdominal pain, Denies bloating, Denies constipation, Denies dysphagia, Denies heartburn, Denies diarrhea, Denies nausea, Denies odynophagia and Denies vomiting Denies hematuria, Denies urinary frequency, Denies dysuria, Denies urinary incontinence and Denies urinary urgency Musc Denies back pain, Denies arthralgias, Denies joint swelling, Denies muscle weakness and Denies neck pain Skin/Breast Denies breast pain, Denies breast mass, Denies change in pigmentation, Denies lesions, Denies rash and Denies unusual bruising Neuro Denies dizziness, Denies headache(s) and Denies paresthesias Psych Reports anxiety (especially when she has to fly on a plane) and Denies depression Endo Denies fatigue and Denies palpitations Dino/Lymph Denies easy bruising Aller/Immun Denies itchy eyes and Denies wheezing Physical exam (Primary Care) Vital Signs: Last Vital Signs Pulse 83 04/07/24 09:03 BP 110/72 04/07/24 09:03 Pulse Ox 97 04/07/24 09:03 Oxygen Delivery Method Room Air 04/07/24 09:03 BMI result Body Mass Index 29.9 Tobacco/Smoking Status: Tobacco use Status Tobacco use date assessed 04/07/24 04/07/24 09:08 Patient Tobacco Use Status Never used Tobacco 04/07/24 09:08 e-Cigarette/Vaping Use Never Used 04/07/24 09:08 PHQ-9: PHQ-9 Score PHQ-9: Total score 0 04/07/24 09:08 Depression Screening Interpretation: Negative Thrive Assessment: Date of Thrive Assessment Date Thrive assessed 04/07/24 04/07/24 09:08 Currently or been in a relationship where the following occur: No concerns reported Const General: no acute distress, alert and awake Orientation/consciousness: patient oriented x3 HENMT Head: Yes normocephalic and Yes atraumatic Ears: external ears normal, TM's normal bilaterally and EAC's normal General nose exam: No nasal discharge present Face and sinus: Yes normal facial exam and Yes sinuses nontender Teeth and gingiva: dentition normal Throat: Yes posterior oropharynx normal and Yes tonsils normal (no TP congestion) Eyes Eyelids: Yes eyelids normal Conjunctivae: conjunctivae normal Pupils: Equal, round and reactive pupils present EOM: EOMs intact bilaterally Neck Neck: Yes no lymphadenopathy and Yes supple Thyroid: Thyroid normal Resp Auscultation: clear to auscultation bilaterally, no rales and no wheezes Cardio Rate: regular rate Rhythm: regular rhythm Heart sounds: no murmurs GI Palpation (GI): Soft to palpation, nontender and No hepatosplenomegaly present Auscultation: normal bowel sounds General: Yes no CVA tenderness Back/Spine/Pelvis Back: no CVA tenderness Thoracic/Lumbar Spine: thoracic and lumbar spine normal to inspection Skin Lesions: no lesions Rashes: no rashes Neuro General: patient oriented x3, moves all extremities, no focal motor deficits and CN's II-XI intact bilaterally Cranial nerves: Yes Equal, round and reactive pupils present Cognition (Neuro): normal cognition Gait exam (Neuro): Normal gait present Extrem General: Yes no clubbing, cyanosis or edema Coding Level of Care Code Est Pt Prev Care 40-64y(28314) Diagnoses Annual physical exam Z00.00 Vitamin D deficiency E55.9 Nephrolithiasis N20.0 Anxiety and depression F41.9; F32.A Overweight (BMI 25.0-29.9) E66.3 Additional Codes PHQ-9 - 10884 - PHQ-9 Billing: Yes ([id number]) Assessment & Plan Assessment & Plan (1) Annual physical exam: Code(s): Z00.00 - Encounter for general adult medical examination without abnormal findings Category: Medical (2) Vitamin D deficiency: Code(s): E55.9 - Vitamin D deficiency, unspecified Category: Medical Plan: Patient's Vitamin D level was very low when it was last checked a couple of years ago She was taking some OTC supplements for a while but has not done so lately Will recheck her Vitamin D level again for follow up and will supplement accordingly if her level still comes back low (3) Nephrolithiasis: Code(s): N20.0 - Calculus of kidney Category: Medical Plan: Patient's most recent ultrasound earlier this year revealed (+) right lower pole 0.4 cm calculus with no hydronephrosis She has not had any bouts of passing out kidney stones recently Follow up with urology as scheduled (4) Anxiety and depression: Code(s): F41.9 - Anxiety disorder, unspecified; F32.A - Depression, unspecified Category: Medical Plan: States that she has been doing well lately and does not need any interventions or Rx at this time She only takes Lorazepam when she is flying on a plane (5) Overweight (BMI 25.0-29.9): Code(s): E66.3 - Overweight Category: Medical Plan: Reinforced diet/exercise as tolerated/lose weight Plan To return in 1 year for her next annual physical examination Orders: Orders Comprehensive Munday. Panel Fast Today E78.00 - Pure hypercholesterolemia, unspecified, Z00.00 - Encounter for general adult medical examination without abnormal findings Lipid Panel Today E78.00 - Pure hypercholesterolemia, unspecified, Z00.00 - Encounter for general adult medical examination without abnormal findings TSH reflex Free T4 Today E78.00 - Pure hypercholesterolemia, unspecified, Z00.00 - Encounter for general adult medical examination without abnormal findings IRON PROFILE Today D50.9 - Iron deficiency anemia, unspecified, Z00.00 - Encounter for general adult medical examination without abnormal findings Complete Blood Count Auto Diff Today D64.9 - Anemia, unspecified, Z00.00 - Encounter for general adult medical examination without abnormal findings UA CC w/rflx Micro + Cult Today R30.0 - Dysuria, Z00.00 - Encounter for general adult medical examination without abnormal findings Vitamin D 25-OH Total Today E55.9 - Vitamin D deficiency, unspecified, Z00.00 - Encounter for general adult medical examination without abnormal findings
== END 2024-04-07 09:34 | disposition home or self-care (01) ==
PROVIDERS: PCP Internal Medicine; Visit Provider Internal Medicine
DX: Z00.00 Encounter for general adult medical examination without abnormal findings (principal); E55.9 Vitamin D deficiency, unspecified; N20.0 Calculus of kidney; F41.9 Anxiety disorder, unspecified; F32.A Depression, unspecified; E66.3 Overweight

== ENCOUNTER 2024-04-07 09:02 | Outpatient (REF) | payer OTHER, SELFPAY ==
[2024-04-07 09:57] LABS: MANUAL DIFF FLAG NO
[2024-04-07 11:00] LABS: Appearance Urine Clear; Color Urine Yellow; Glucose Urine UA Negative (Negative); Leukocyte Esterase Urine Trace (Negative); Nitrite Urine Negative (Negative); PH 7.5 (5.0-9.0); Specific Gravity - Urine 1.025 (1.005-1.025); UMIC TRIGGER UACC YES; Urine Blood Negative (Negative); Urine Ketones Negative (Negative); Urine Protein Negative (Neg-Trace)
[2024-04-07 11:08] LABS: Bacteria Urine None Seen (None Seen); Hyaline Casts Urine 0-2 /LPF (0-2); RBC Urine 0-2 /HPF (0-2); Squamous Epithelial Cell Urine 0-2 /HPF (0-2); WBC Urine 0-5 /HPF (0-5)
[2024-04-07 11:36] LABS: Basophils Percent Auto 0.7 % (0-2); Eosinophils Absolute Auto 0.1 X10*3/uL (0.0-0.4); Hematocrit 40.1 % (37.0-47.0); Hemoglobin 13.2 g/dl (12.0-16.0); Imm Gran Abs Auto 0.01 X10*3/uL (0.00-0.03); Imm Gran Pct Auto 0.2 % (0.0-0.4); Lymphocytes Absolute Auto 1.7 X10*3/uL (1.2-4.9); Lymphocytes Percent Auto 38.5 % (20-40); Mean Corpuscular HGB Conc 32.9 g/dl (31.0-35.0); Mean Corpuscular Hemoglobin 30.3 pg (27.0-33.0); Mean Corpuscular Volume 92.2 fL (80.0-98.0); Mean Platelet Volume 10.9 fL (9.4-12.3); Monocytes Absolute Auto 0.3 X10*3/uL (0.1-1.2); Neutrophils Absolute Auto 2.3 x10*3/uL (2.0-8.3); Neutrophils Percent Auto 51.6 % (45-73); Platelet Count 233 X10*3/uL (160-400); Red Blood Count 4.35 X10*6/uL (4.20-5.50); Red Cell Distribution Width 12.8 % (11.0-16.0); White Blood Count 4.4 X10*3/uL (4.8-10.8)
[2024-04-07 12:08] LABS: Alanine Aminotransferase 19 U/L (0-31); Albumin Level 4.3 g/dL (3.5-5.0); Alkaline Phosphatase 79 U/L (39-117); Anion Gap 12 (12-20); Aspartate Amino Transferase 18 U/L (5-31); Bilirubin Total 0.4 mg/dL (0.0-1.0); Blood Urea Nitrogen 17 mg/dL (9-16); Calcium 9.7 mg/dL (8.4-10.2); Carbon Dioxide 29 mmol/L (22-29); Chloride 106 mmol/L (96-108); Cholesterol 213 mg/dL (<200); Estimated Glomerular Filt Rate > 60; Glucose Fasting 90 mg/dL (60-99); HDL Cholesterol 51 mg/dL (>40); Iron 111 mcg/dL (30-160); LDL Cholesterol Calculated 149 mg/dL (<100); Percent Iron Saturation 45 % (15-50); Potassium 4.5 mmol/L (3.3-5.1); Sodium 142 mmol/L (135-145); Total Iron Binding Capacity 247 mcg/dL (228-428); Total Protein 7.6 g/dL (6.5-8.0); Triglycerides 66 mg/dL (<150); Unsaturated Iron Binding 136 ug/dL
[2024-04-07 12:47] LABS: TSH reflex Free T4 1.26 uIU/mL (0.32-4.0); Vitamin D 25-OH Total 24.6 ng/mL (>30)
== END 2024-04-07 09:03 | disposition home or self-care (01) ==
LOC: HO.LAB 09:02
PROVIDERS: PCP Internal Medicine; Visit Provider Internal Medicine
DX: Z00.00 Encounter for general adult medical examination without abnormal findings (principal); E55.9 Vitamin D deficiency, unspecified; N20.0 Calculus of kidney; F41.9 Anxiety disorder, unspecified; F32.A Depression, unspecified; E66.3 Overweight; E78.00 Pure hypercholesterolemia, unspecified; D50.9 Iron deficiency anemia, unspecified; R30.0 Dysuria
CPT/HCPCS: 36415; 80053; 80061; 81001; 81003; 82306; 83540; 84443; 85025; 96127

== ENCOUNTER 2024-05-25 09:38 | Outpatient (AMB) | payer OTHER, SELFPAY ==
--- NOTE | 2024-05-25 10:06 | MHC.OFFWIV ---
Intake Vital Signs 05/25/24 10:09 Weight 185 lb BP 120/82 Blood Pressure Location Rt brachial Position Sitting Pulse 98 Pulse Source Pulse Oximeter Pulse Oximetry (%) 98 Oxygen Delivery Method Room Air Intake Visit Reasons: EP-hear palpitation Intake Note: Patient here for heart palpitation that has been going on for a while now but happens suddenly. Patient Tobacco Use Status: Never used Tobacco Allergies oxycodone [OXYCODONE] Allergy (Intermediate, Verified 05/25/24 10:09) nausea/vomiting/dizziness shrimp Adverse Reaction (Intermediate, Verified 05/25/24 10:09) NAUSEA Do you need a note to return to daycare/school/sports/work: No HPI HPI Comments History of Present Illness Details 49 y/o female patient who presents to the walk in clinic with c/o Heart Palpitations on/off for 2 months now. Reports feeling chest tightness and her heart skips a Bit . Denies chest pains, SOB or wheezing. Unable to recall any activities that triggers the symptoms - happens suddenly. [facility] Medical History (Updated 05/25/24 @ 10:42 by Myra Pineda NP) Heart palpitations Vitamin D deficiency Fibroadenoma Breast mass, left COVID-19 Overweight (BMI 25.0-29.9) History of menorrhagia Anxiety Depression Surgical History Hx of colonoscopy Hx of breast biopsy H/O prior ablation treatment Hx of tubal ligation Family History Mother Mental health disorder Father No problems noted. Social History Household Members: Family Housing: House Do you presently have visiting nurse or other home services: No Alcohol intake: never Patient Tobacco Use Status: Never used Tobacco e-Cigarette/Vaping Use: Never Used Second Hand Smoke Exposure: No service: No Current occupational status: employed Gender identity: Female Cognitive needs: No Hearing needs: No Vision needs: Yes Female Reproductive History Menstrual Age of Menarche: 13 Review of Systems Const All systems reviewed & are unremarkable except as noted in HPI and below Physical Exam Vital Signs: Last Vital Signs Pulse 98 05/25/24 10:09 BP 120/82 05/25/24 10:09 Pulse Ox 98 05/25/24 10:09 Oxygen Delivery Method Room Air 05/25/24 10:09 HEENT Head: Yes normocephalic Resp Effort & Inspection: normal respiratory effort and able to speak in complete sentences Auscultation: clear to auscultation bilaterally, no crackles, no rales, no rhonchi and no wheezes Cardio Rate: regular rate Rhythm: regular rhythm Heart sounds: S1 normal heart sound present, S2 normal heart sound present and no murmurs Bruits: no abdominal aortic bruits GI Palpation (GI): No Abdominal aortic bruit present Assessment & Plan Assessment & Plan (1) Heart palpitations: Code(s): R00.2 - Palpitations Plan: Ordered EKG - Sinus Rhythm Advised to f/u with PCP for possible Cardiology referral. Orders: Orders AMB EKG-In Office Today R00.2 - Palpitations Coding Level of Care Code Est Pt Level 4 (62594) Diagnoses Heart palpitations R00.2 Time Spent (min) 20
[2024-05-25 10:09] VITALS: BP 120/82; PULSE 98; O2SAT 98
== END 2024-05-25 10:59 | disposition home or self-care (01) ==
PROVIDERS: PCP Internal Medicine; Visit Provider Nurse Practitioner Family
DX: R00.2 Palpitations (principal)

== ENCOUNTER 2024-07-03 08:04 | Outpatient (REF) | payer OTHER, SELFPAY ==
--- NOTE | ~2024-07-03 | US_ITS ---
EXAMINATION: US KIDNEY BILATERAL HISTORY: N20.0 - Calculus of kidney TECHNIQUE: Real-time grayscale ultrasound imaging of the kidneys was performed and images were reviewed. COMPARISON: Comparison is made with the prior examination dated 06/06/2023. FINDINGS: Right kidney: The right kidney measures 10.8 x 5.0 x 5.1 cm. Renal parenchymal echotexture and thickness are normal. There are no masses. Multiple nonobstructing calculi are noted including a 3 x 2 x 5 mm calculus at the upper pole, a 5 x 4 x 4 mm calculus in the interpolar region, and a 6 x 4 x 4 mm calculus at the lower pole. There is no hydronephrosis. Left Kidney: The left kidney measures 10.9 x 5.4 x 5.4 cm. Renal parenchymal echotexture and thickness are normal. There are no masses. There is a 3 x 2 x 3 mm nonobstructing calculus at the upper pole. There is no hydronephrosis. US/US renal BI IMPRESSION: Bilateral renal calculi as described. No hydronephrosis. Electronically signed by: Murtaza Romero MD 07/03/2024 08:55 AM EDT
== END 2024-07-03 08:05 | disposition home or self-care (01) ==
LOC: HO.US 08:04
PROVIDERS: PCP Internal Medicine; Visit Provider Nurse Practitioner Family
DX: N20.0 Calculus of kidney (principal)
CPT/HCPCS: 76775

== ENCOUNTER → 2024-07-03 08:06 | Outpatient (BNV) | payer OTHER, SELFPAY | PROVIDERS: PCP Internal Medicine; Visit Provider Radiology Diagnostic Radiology | DX: N20.0 Calculus of kidney (principal) | CPT/HCPCS: 76775 ==

== ENCOUNTER 2024-09-10 09:48 | Outpatient (AMB) | payer OTHER, SELFPAY ==
--- NOTE | 2024-09-10 09:49 | MHC.OFFVIS ---
Intake Visit Reasons: 1y/US(set) Intake Note: pt here today for: uro meds: blood thinner: Allergies oxycodone [OXYCODONE] Allergy (Intermediate, Verified 09/10/24 10:40) nausea/vomiting/dizziness shrimp Adverse Reaction (Intermediate, Verified 09/10/24 10:40) NAUSEA Medication List - Last Reconciled 09/10/24 by ANT Johnson No Known Home Meds HPI Comments Details: Vanda is a pleasant 49-year-old female patient of Dr. Briceno. She has a past medical history of anxiety, depression, and nephrolithiasis. She presents to the office today for follow-up of her nephrolithiasis. In discussion with the patient today she reports to be doing and feeling well. She denies having had any bothersome urinary issues or concerns since her last office visit here. Recent renal imaging results were reviewed with the patient today 07/07 bilateral kidneys are normal in echotexture and thickness. There are no renal masses or hydronephrosis noted bilaterally. Multiple nonobstructing right renal calculi measuring 5 mm, 5 mm, and 6 mm. Left kidney with 3 mm nonobstructing calculus at the upper pole. We discussed increased stone burden since her last office visit. She does report to not be drinking sufficient water. We did discussed at length the importance of hydration relation to nephrolithiasis as well as overall health and well-being. We discussed obtaining Litholink for further assessment evaluation. She is agreeable. She denies urinary urgency, urinary frequency, incontinence, nocturia, hematuria, dysuria, foul smelling urine, changes to urinary stream, flank pain, fever, and or chills. She is happy with her current voiding parameters. In office urinalysis results reviewed with the patient today. She otherwise offers no issues or concerns at this time. Discussed surveillance imaging. Discussed risks and benefits of both surveillance imaging versus surgical intervention. All questions were answered. [facility] Medical History Heart palpitations Vitamin D deficiency Fibroadenoma Breast mass, left COVID-19 Overweight (BMI 25.0-29.9) History of menorrhagia Anxiety Depression Surgical History Hx of colonoscopy Hx of breast biopsy H/O prior ablation treatment Hx of tubal ligation Family History Mother Mental health disorder Father No problems noted. Social History Household Members: Family Housing: House Do you presently have visiting nurse or other home services: No Alcohol intake: never Patient Tobacco Use Status: Never used Tobacco e-Cigarette/Vaping Use: Never Used Second Hand Smoke Exposure: No service: No Current occupational status: employed Gender identity: Female Cognitive needs: No Hearing needs: No Vision needs: Yes Female Reproductive History Menstrual Age of Menarche: 13 Review of Systems Const All systems reviewed & are unremarkable except as noted in HPI and below Physical Exam Const General: cooperative, healthy appearing, comfortable, no acute distress, well developed, alert and awake Orientation/consciousness: patient oriented x3 Limitations: no limitations HEENT Head: Yes normal to inspection, Yes normocephalic and Yes atraumatic Ears: hearing grossly normal bilaterally Eyes General: appearance normal, both eyes and all related structures Neck Neck: Yes normal visual inspection and Yes trachea midline Chest Chest palpation & inspection: normal inspection of the chest Resp Effort & Inspection: normal respiratory effort and able to speak in complete sentences Cardio Rate: regular rate General: Yes no CVA tenderness Back/Spine/Pelvis Back: no CVA tenderness Neuro General: patient oriented x3 Extrem General: Yes normal to inspection Psych Appearance: grossly normal and well kempt Mental Status: mental status grossly normal Speech and movement: Normal speech and movement present and Clear speech present Affect: normal affect Attitude: cooperative Thought process: Normal thought process present Thought content: Normal thought content present Insight: Fair insight present (Psych) Judgement: Fair judgement present (Psych) Results AMB Urinalysis, Automated UA Leukoctes 15 Elieser/uL Last Edit by Lesly Heath on 09/10/24 10:02 UA Nitrite Negative Last Edit by Lesly Heath on 09/10/24 10:02 UA Urobilinogen 0.2 mg/dL Last Edit by Lesly Heath on 09/10/24 10:02 UA Protein 15 mg/dL Last Edit by Lesly Heath on 09/10/24 10:02 UA pH 6.0 Last Edit by Lesly Ivana on 09/10/24 10:02 UA Blood 0 Zheng/uL Last Edit by Lesly Ivana on 09/10/24 10:02 UA Specific [place] 1.015 Last Edit by Lesly Ivana on 09/10/24 10:02 UA Ketone Negative Last Edit by Lesly Ivana on 09/10/24 10:02 UA Bilirubin 0 mg/dL Last Edit by Lesly Ivana on 09/10/24 10:02 UA Glucose 0 mg/dL Last Edit by Lesly Ivana on 09/10/24 10:02 Results Reviewed Results Reviewed: Laboratory Last Values Urine pH (Auto) 6.0 09/10/24 09:53 Specific [place] (Auto) 1.015 09/10/24 09:53 Urine Protein (Auto) 15 mg/dL 09/10/24 09:53 Glucose (UA)(Auto) 0 mg/dL 09/10/24 09:53 Urine Ketones (Auto) Negative 09/10/24 09:53 Urine Blood (Auto) 0 Zheng/uL 09/10/24 09:53 Urine Nitrite (Auto) Negative 09/10/24 09:53 Urine Bilirubin (Auto) 0 mg/dL 09/10/24 09:53 Urine Urobilinogen (Auto) 0.2 mg/dL 09/10/24 09:53 Leukocyte Esterase (Auto) 15 Elieser/uL 09/10/24 09:53 Date of Service: 07/03/24 Procedure(s): US renal BI FINDINGS: Right kidney: The right kidney measures 10.8 x 5.0 x 5.1 cm. Renal parenchymal echotexture and thickness are normal. There are no masses. Multiple nonobstructing calculi are noted including a 3 x 2 x 5 mm calculus at the upper pole, a 5 x 4 x 4 mm calculus in the interpolar region, and a 6 x 4 x 4 mm calculus at the lower pole. There is no hydronephrosis. Left Kidney: The left kidney measures 10.9 x 5.4 x 5.4 cm. Renal parenchymal echotexture and thickness are normal. There are no masses. There is a 3 x 2 x 3 mm nonobstructing calculus at the upper pole. There is no hydronephrosis. IMPRESSION: Bilateral renal calculi as described. No hydronephrosis. Assessment & Plan Assessment & Plan (1) Nephrolithiasis: Code(s): N20.0 - Calculus of kidney Category: Medical Plan In office urinalysis results reviewed with the patient today; as noted above. Recent renal imaging results reviewed with the patient today; as noted above. We discussed increased stone burden in the last year. Start vitamin B6 as discussed and prescribed. We discussed the importance of adequate hydration relation to nephrolithiasis as well as overall health and well-being. We discussed adding 1 oz of lemon juice to water daily. Will continue with surveillance monitoring. Will obtain Litholink for further assessment evaluation. Follow-up in 3 months with Litholink to be completed prior; or sooner with any issues, concerns, and or questions Orders: Orders AMB Urinalysis Automated Today N39.0 - Urinary tract infection, site not specified URORISK Today N20.0 - Calculus of kidney Medications: New pyridoxine (vitamin B6) 100 mg PO DAILY 90 days 90 tabs 3RF Patient Instructions: The patient had an opportunity to ask questions regarding the treatment plan. All questions were answered. Physical exam, labs, and imaging were discussed and reviewed in detail. As well as risks, benefits, and discussion of treatment choices. No major barriers to understanding were identified. The patient expressed understanding and agreement with the above treatment plan. The patient was made aware they should contact our office by phone for worsening of their current condition, the appearance of new symptoms, or with any questions or concerns. Compliance is encouraged with any medications and follow up testing that is ordered. It is a privilege to be allowed the opportunity to participate in? your urological care.? Again, if you have any questions or concerns If you have any questions or concerns please do not hesitate to contact me. The office is [phone]. This note is constructed using voice recognition software. While every effort has been made to ensure accuracy seating captain errors may have been included. Yours sincerely, ANT Johnson Coding Level of Care Code Est Pt Level 4 (99910) Diagnoses Nephrolithiasis N20.0
== END 2024-09-10 10:38 | disposition home or self-care (01) ==
LOC: HO.HUSH 09:48
PROVIDERS: PCP Internal Medicine; Visit Provider Nurse Practitioner Family
DX: N20.0 Calculus of kidney (principal); N39.0 Urinary tract infection, site not specified
CPT/HCPCS: 99214

== ENCOUNTER → 2024-09-10 09:48 | Outpatient (BNVA) | payer OTHER, SELFPAY | PROVIDERS: PCP Internal Medicine; Visit Provider Nurse Practitioner Family | DX: N20.0 Calculus of kidney (principal); N39.0 Urinary tract infection, site not specified | CPT/HCPCS: 81003 ==

== ENCOUNTER 2024-10-01 08:40 | Outpatient (AMB) | payer OTHER, SELFPAY ==
--- NOTE | 2024-10-01 08:44 | MHC.OFFVIS ---
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 Over the last year or so she has been noticing some fluttering in the chest. This can happen randomly, any time. No clear provoking factors. These last for a brief period of time and then resolved completely. Frequency of the episode is every few weeks. No other complaints like angina or shortness of breath or in fact anything cardiac sounding. No previous issues like coronary disease or myocardial infarction or cardiomyopathy. [facility] Medical History Heart palpitations Vitamin D deficiency Fibroadenoma Breast mass, left COVID-19 Overweight (BMI 25.0-29.9) History of menorrhagia Anxiety Depression Surgical History Hx of colonoscopy Hx of breast biopsy H/O prior ablation treatment Hx of tubal ligation Family History Mother Mental health disorder Father No problems noted. Social History (Updated 10/01/24 @ 08:47 by Maisha Ibarra) Household Members: Family Housing: House Do you presently have visiting nurse or other home services: No Alcohol intake: current Alcohol intake frequency: holidays/special occasions only Patient Tobacco Use Status: Never used Tobacco e-Cigarette/Vaping Use: Never Used Second Hand Smoke Exposure: No service: No Current occupational status: employed Gender identity: Female Cognitive needs: No Hearing needs: No Vision needs: Yes Female Reproductive History Menstrual Age of Menarche: 13 Review of Systems Const Denies weakness ENT Denies dizziness Card Denies chest pain, Denies chest pain with activity, Denies syncope, Denies rapid heart rate, Denies pedal edema, Denies edema, Denies leg edema, Denies lightheadedness, Reports palpitations, Denies dyspnea, Denies dyspnea on exertion and Denies orthopnea Resp Denies cough, Denies dyspnea and Denies dyspnea on exertion GI Denies hematochezia and Denies change in stool character Musc Denies abnormal gait, Denies muscle cramps, Denies muscle weakness, Denies numbness, Denies radiating pain into limb and Denies tingling Neuro Denies abnormal gait, Denies dizziness, Denies syncope, Denies numbness, Denies tingling and Denies weakness Endo Reports palpitations Physical Exam Vital Signs: Last Vital Signs Pulse 80 10/01/24 08:46 BP 110/60 10/01/24 08:46 BMI result Body Mass Index 28.8 Const General: comfortable and no acute distress Orientation/consciousness: patient oriented x3 HEENT Other: Unremarkable Head: Yes normal to inspection Neck Neck: Yes normal visual inspection Chest Chest palpation & inspection: normal inspection of the chest Resp Auscultation: clear to auscultation bilaterally Cardio Palpation: normal PMI Heart sounds: S1 normal heart sound present, S2 normal heart sound present, no gallops, no murmurs and no rubs GI Palpation (GI): Soft to palpation Back/Spine/Pelvis Other: unremarkable Skin General skin exam: no rashes or lesions noted Neuro General: patient oriented x3 Extrem General: Yes normal to inspection Psych Mental Status: mental status grossly normal Office Procedures EKG Details: EKG with sinus versus ectopic atrial rhythm; no significant ST-T changes; [place] [id number], Complete Assessment & Plan Assessment & Plan (1) Heart palpitations: Code(s): R00.2 - Palpitations Category: Medical Plan EKG with sinus versus ectopic atrial rhythm but it is similar to prior EKG from 2017. In some of the scanned rhythm strips, P-waves well seen but not in others. We will screen her for any atrial arrhythmias with a Holter monitor. Echocardiogram for cardiac function. Follow-up after the above. Plan discussed and she is in agreement. Discussion Notes I discussed with the patient the plan to use a aircraft mechanic electrical and radio for two weeks to capture any episodes of palpitations. We will also perform a heart ultrasound to evaluate cardiac function. The patient was advised to keep a diary of any palpitations, noting the time and date, to correlate with the monitor data. Patient was informed and verbally consented to the use of an ambient scribe for clinic note documentation during this visit. Orders: Orders CA echo transthoracic complete Today R00.2 - Palpitations ECG 14 day holter monitor Today R00.2 - Palpitations Coding Level of Care Code New Pt Level 3 (49508) Diagnoses Heart palpitations R00.2 CPT Codes EKG - CPT: 03582-[id number], Complete ([id number])
[2024-10-01 08:46] VITALS: BP 110/60; PULSE 80; BMI 28.8
== END 2024-10-01 09:33 | disposition home or self-care (01) ==
PROVIDERS: PCP Internal Medicine; Visit Provider Internal Medicine
DX: R00.2 Palpitations (principal)
CPT/HCPCS: 93010; 99203

== ENCOUNTER → 2024-10-01 08:40 | Outpatient (BNVA) | payer OTHER, SELFPAY | PROVIDERS: PCP Internal Medicine; Visit Provider Internal Medicine | DX: R00.2 Palpitations (principal) | CPT/HCPCS: 93005 ==

== ENCOUNTER 2024-10-09 11:33 | Outpatient (AMB) | payer OTHER, SELFPAY ==
[2024-10-09 11:34] VITALS: BP 114/78; PULSE 80; TEMP 36.8; O2SAT 99; BMI 29.2
--- NOTE | 2024-10-09 11:34 | MHC.OFFWIV ---
Intake Vital Signs 10/09/24 11:34 Height 5 ft 6 in Weight 181 lb BMI 29.2 BP 114/78 Blood Pressure Location Lt brachial Position Sitting Pulse 80 Pulse Source Pulse Oximeter Temp 98.2 F Temp Source Oral Pulse Oximetry (%) 99 Oxygen Delivery Method Room Air Intake Visit Reasons: EP UTI?? 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 HPI Details History - The patient is a 49-year-old female presenting with dysuria. - The burning sensation during urination started approximately two to three days ago. - There is no associated urinary frequency or urgency. - The patient reports a history of kidney stones and is currently under treatment with vitamin B6 and increased water intake. - There is a slight presence of blood in the urine, but no signs of infection have been detected. - The patient denies fever, nausea, or abdominal pain. She is established with the [facility] for kidney stone management Problem List - Urethritis - Kidney stones Patient Instructions - Take the prescribed antibiotics for three days as directed. - Drink plenty of water to help alleviate symptoms. 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 Social History Household Members: Family Housing: House Do you presently have visiting nurse or other home services: No Alcohol intake: current Alcohol intake frequency: holidays/special occasions only Patient Tobacco Use Status: Never used Tobacco e-Cigarette/Vaping Use: Never Used Second Hand Smoke Exposure: No Patient : No service: No Current occupational status: employed Gender identity: Female Cognitive needs: No Hearing needs: No Vision needs: Yes Female Reproductive History Menstrual Age of Menarche: 13 Physical Exam Vital Signs: Last Vital Signs Temp 98.2 F 10/09/24 11:34 Pulse 80 10/09/24 11:34 BP 114/78 10/09/24 11:34 Pulse Ox 99 10/09/24 11:34 Oxygen Delivery Method Room Air 10/09/24 11:34 BMI result Body Mass Index 29.2 Results AMB Urinalysis, Automated UA Leukoctes 0 Elieser/uL Last Edit by Mandi Patten MA on 10/09/24 11:54 UA Nitrite Negative Last Edit by Mandi Patten MA on 10/09/24 11:54 UA Urobilinogen 0.2 mg/dL Last Edit by Mandi Patten MA on 10/09/24 11:54 UA Protein 0 mg/dL Last Edit by Mandi Patten MA on 10/09/24 11:54 UA pH 7.5 Last Edit by Mandi Patten MA on 10/09/24 11:54 UA Blood 10 Zheng/uL Last Edit by Mandi Patten MA on 10/09/24 11:54 UA Specific [place] 1.010 Last Edit by Mandi Patten MA on 10/09/24 11:54 UA Ketone Negative Last Edit by Mandi Patten MA on 10/09/24 11:54 UA Bilirubin 0 mg/dL Last Edit by Mandi Patten MA on 10/09/24 11:54 UA Glucose 0 mg/dL Last Edit by Mandi Patten MA on 10/09/24 11:54 Results Reviewed Results Reviewed: Laboratory Last Values Urine pH (Auto) 7.5 10/09/24 11:52 Specific [place] (Auto) 1.010 10/09/24 11:52 Urine Protein (Auto) 0 mg/dL 10/09/24 11:52 Glucose (UA)(Auto) 0 mg/dL 10/09/24 11:52 Urine Ketones (Auto) Negative 10/09/24 11:52 Urine Blood (Auto) 10 Zheng/uL 10/09/24 11:52 Urine Nitrite (Auto) Negative 10/09/24 11:52 Urine Bilirubin (Auto) 0 mg/dL 10/09/24 11:52 Urine Urobilinogen (Auto) 0.2 mg/dL 10/09/24 11:52 Leukocyte Esterase (Auto) 0 Elieser/uL 10/09/24 11:52 Assessment & Plan Assessment & Plan (1) Dysuria: Code(s): R30.0 - Dysuria (2) Nephrolithiasis: Code(s): N20.0 - Calculus of kidney (3) Blood in urine: Code(s): R31.9 - Hematuria, unspecified Qualifiers: Hematuria type: other microscopic Qualified Code(s): R31.29 - Other microscopic hematuria Plan History - The patient is a 49-year-old female presenting with dysuria. - The burning sensation during urination started approximately two to three days ago. - There is no associated urinary frequency or urgency. - The patient reports a history of kidney stones and is currently under treatment with vitamin B6 and increased water intake. - There is a slight presence of blood in the urine, but no signs of infection have been detected. - The patient denies fever, nausea, or abdominal pain. She is established with the U[facility] for kidney stone management Problem List - Urethritis - Kidney stones Patient Instructions - Take the prescribed antibiotics for three days as directed. - Drink plenty of water to help alleviate symptoms. Orders: Orders AMB Urinalysis Automated Today Z13.9 - Encounter for screening, unspecified Medications: New nitrofurantoin monohyd/m-cryst 100 mg (Macrobid) must administer with a meal/food 100 mg PO Q12H 6 caps 0RF 3 days Coding Level of Care Code Est Pt Level 3 (24398) Diagnoses Dysuria R30.0 Nephrolithiasis N20.0 Other microscopic hematuria R31.29 Hematuria type: other microscopic
== END 2024-10-09 12:38 | disposition home or self-care (01) ==
PROVIDERS: PCP Internal Medicine; Visit Provider Internal Medicine
DX: R30.0 Dysuria (principal); N20.0 Calculus of kidney; R31.29 Other microscopic hematuria; Z13.9 Encounter for screening, unspecified

== ENCOUNTER → 2024-10-09 11:33 | Outpatient (BNVA) | payer OTHER, SELFPAY | PROVIDERS: PCP Internal Medicine; Visit Provider Internal Medicine | DX: R30.0 Dysuria (principal); N20.0 Calculus of kidney; R31.29 Other microscopic hematuria | CPT/HCPCS: 81003 ==

== ENCOUNTER 2024-10-28 13:07 | Outpatient (REF) | payer OTHER, SELFPAY ==
[2024-10-28 20:54] LABS: Bacterial Vaginosis PCR NEGATIVE (Negative); Candida Group PCR NOT DETECTED (Not Detect); Candida glab krusei PCR NOT DETECTED (Not Detect); Trichomonas vaginalis PCR NOT DETECTED (Not Detect)
[2024-10-28 21:47] LABS: CT PCR NOT DETECTED (Not Detect.); NG PCR NOT DETECTED (Not Detect.)
== END 2024-10-28 13:08 | disposition home or self-care (01) ==
LOC: HO.LNP 13:07
PROVIDERS: PCP Internal Medicine; Visit Provider Advanced Practice Midwife
DX: N95.1 Menopausal and female climacteric states (principal); L29.2 Pruritus vulvae; N92.6 Irregular menstruation, unspecified; N89.8 Other specified noninflammatory disorders of vagina; Z32.02 Encounter for pregnancy test, result negative
CPT/HCPCS: 81025; 81515; 87491; 87591

== ENCOUNTER 2024-10-28 13:07 | Outpatient (AMB) | payer OTHER, SELFPAY ==
--- NOTE | 2024-10-28 13:09 | A.OFFVIS_ITS ---
Vital Signs 10/28/24 13:17 Height 5 ft 6 in Weight 180 lb BMI 29.0 BP 110/7 L Blood Pressure Location Rt brachial Position Sitting Intake Visit Reasons: irregular menses ok per Sunitha Intake Note: period occurs every 3 months since 2022. [facility] Required: No Information Interpreted: clinical only Accompanied by: Self / Same As Patient Allergies oxycodone (OXYCODONE) Allergy (Intermediate, Verified 10/28/24 13:13) nausea/vomiting/dizziness shrimp Adverse Reaction (Intermediate, Verified 10/28/24 13:13) NAUSEA Medication List - Last Reconciled 10/28/24 by Maisha Donovan LPN pyridoxine (vitamin B6) 100 mg PO DAILY 90 days Is last menstrual period known: Yes Last menstrual period: 09/28/24 Do you need a note to return to daycare/school/sports/work: No HPI Comments Details: Patient is here today with concerns that she has skipped her period for up to 3 months. History of ablation in 2019 has light cycles. Additionally has some slight external itching intermittently. No odors, pelvic pain or urinary symptoms. [facility] Medical History Heart palpitations Vitamin D deficiency Fibroadenoma Breast mass, left COVID-19 Overweight (BMI 25.0-29.9) History of menorrhagia Anxiety Depression Surgical History Hx of colonoscopy Hx of breast biopsy H/O prior ablation treatment Hx of tubal ligation Family History Mother Mental health disorder Father No problems noted. Social History Household Members: Family Housing: House Do you presently have visiting nurse or other home services: No Alcohol intake: current Alcohol intake frequency: holidays/special occasions only Patient Tobacco Use Status: Never used Tobacco e-Cigarette/Vaping Use: Never Used Second Hand Smoke Exposure: No service: No Current occupational status: employed Gender identity: Female Cognitive needs: No Hearing needs: No Vision needs: Yes Female Reproductive History Menstrual Age of Menarche: 13 Date of last menstrual period: 06/16/25 control method: permanent sterilization Total pregnancies: 3 Number of Living Children: 3 History of abnormal pap smear: No Date of Mammogram: 01/29/24 Review of Systems Const All systems reviewed & are unremarkable except as noted in HPI and below Physical Exam Vital Signs: Last Vital Signs BP 110/7 L 10/28/24 13:17 BMI result Body Mass Index 29.0 Const General: cooperative, healthy appearing and no acute distress Orientation/consciousness: patient oriented x3 GI Inspection: Yes normal to inspection Palpation (GI): Soft to palpation and Other GI palpation findings present (Nontender) Rectal Exam - Female: visual inspection normal General: Yes bladder normal to palpation External Female Exam: normal appearance of the urethra Speculum Exam - Vagina: normal appearance of the vagina, normal palpation and normal vaginal discharge Speculum Exam - Cervix: normal appearance of the cervix and normal palpation Bimanual exam- vagina & uterus: normal bimanual exam, normal palpation, uterine size normal, bladder normal to palpation, normal palpation, uterine shape normal and non-tender Bimanual Exam- Adnexa, other: normal adnexae Neuro General: patient oriented x3 Results AMB Test Urine AMB Test Urine Negative Last Edit by Maisha Donovan LPN on 13:42 Assessment & Plan Assessment & Plan (1) Perimenopause: Code(s): N95.1 - Menopausal and female climacteric states Plan: Menopause verses perimenopause. Menopause is definitive of 1 year of no menses or 12 months in succession. Report any abnormal uterine bleeding in example prolonged episodes, or short intervals less than 24 days. UPT is negative. The patient expressed understanding and agreement with the plan of care. All of her questions and concerns were addressed to the best of my ability. Annual exam scheduled January 2026. (2) Vulvar itching: Code(s): L29.2 - Pruritus vulvae Plan Discussed skin care, use of mild or no soap, rinsed clear with water, was cotton underwear and clothing, change of external dom pad to different brand. Air dry. Await BV panel for final results. GC chlamydia completed on request. The patient expressed understanding and agreement with the plan of care. All of her questions and concerns were addressed to the best of my ability. This note is constructed using voice recognition software. While every effort has been made to ensure accuracy, lang path therapist errors may have been included. Orders: Orders AMB HCG Urine Test Today N92.6 - Irregular menstruation, unspecified CT NG by PCR Vag/Cerv Today N89.8 - Other specified noninflammatory disorders of vagina Bacterial Vaginosis Panel Today N89.8 - Other specified noninflammatory disorders of vagina Coding Level of Care Code Est Pt Level 3 (21346) Diagnoses Perimenopause N95.1 Vulvar itching L29.2
[2024-10-28 13:17] VITALS: BP 110/7; BMI 29.0
== END 2024-10-28 14:25 | disposition home or self-care (01) ==
LOC: HO.HWS 13:08
PROVIDERS: PCP Internal Medicine; Visit Provider Advanced Practice Midwife
DX: N95.1 Menopausal and female climacteric states (principal); L29.2 Pruritus vulvae; N92.6 Irregular menstruation, unspecified
CPT/HCPCS: 99213

== ENCOUNTER → 2024-11-02 09:21 | Outpatient (REF) | payer OTHER, SELFPAY ==
--- NOTE | 2024-11-02 09:25 | HM_ITS ---
Conclusion: 1. Patient was monitored for total period of 13 days 2. Baseline was normal sinus rhythm with average heart rate of 86 beats per minute 3. Rare ectopy noted with no significant pauses 4. One 3 beat armida of nonsustained VT at 143 beats per minute 5. No patient reported events MTDD
== END ==
LOC: HO.CARD 09:21
PROVIDERS: PCP Internal Medicine; Visit Provider Internal Medicine
DX: R00.2 Palpitations (principal)
CPT/HCPCS: 93246

== ENCOUNTER → 2024-11-02 09:25 | Outpatient (BNV) | payer OTHER, SELFPAY | PROVIDERS: PCP Internal Medicine; Visit Provider Internal Medicine Cardiovascular Disease | DX: I47.10 Supraventricular tachycardia, unspecified (principal) | CPT/HCPCS: 93248 ==

== ENCOUNTER 2024-12-09 12:41 | Outpatient (AMB) | payer OTHER, SELFPAY ==
--- NOTE | 2024-12-09 12:46 | A.OFFVIS_ITS ---
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 Briceno. She has a past medical history of anxiety, depression, and nephrolithiasis. She presents to the office today for follow-up of her nephrolithiasis. In discussion with the patient today she reports to be doing and feeling well. She denies having had any bothersome urinary issues or concerns since her last office visit here. Plan was to review Litholink results however upon further assessment appears Litholink was unable to be performed as specimen did not have required urine perseverative added. We did review this throughout today's offic e visit. We reviewed proper Litholink collection. 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 Previous imaging 07/07 bilateral kidneys are normal in echotexture and thickness. There are no renal masses or hydronephrosis noted bilaterally. Multiple nonobstructing right renal calculi measuring 5 mm, 5 mm, and 6 mm. Left kidney with 3 mm nonobstructing calculus at the upper pole. We did discussed at length the importance of hydration relation to nephrolithiasis as well as overall health and well-being. We discussed obtaining repeat Litholink for further assessment evaluation. She is agreeable. She denies urinary urgency, urinary frequency, incontinence, nocturia, hematuria, dysuria, foul smelling urine, changes to urinary stream, flank pain, fever, and or chills. She is happy with her current voiding parameters. In office urinalysis results reviewed with the patient today. She otherwise offers no issues or concerns at this time. Discussed surveillance imaging. All questions were answered. [facility] Medical History Heart palpitations Vitamin D deficiency Fibroadenoma Breast mass, left COVID-19 Overweight (BMI 25.0-29.9) History of menorrhagia Anxiety Depression Surgical History Hx of colonoscopy Hx of breast biopsy H/O prior ablation treatment Hx of tubal ligation Family History Mother Mental health disorder Father No problems noted. Social History Household Members: Family Housing: House Do you presently have visiting nurse or other home services: No Alcohol intake: current Alcohol intake frequency: holidays/special occasions only Patient Tobacco Use Status: Never used Tobacco e-Cigarette/Vaping Use: Never Used Second Hand Smoke Exposure: No service: No Current occupational status: employed Gender identity: Female Cognitive needs: No Hearing needs: No Vision needs: Yes Female Reproductive History Menstrual Age of Menarche: 13 Review of Systems Const All systems reviewed & are unremarkable except as noted in HPI and below Physical Exam Const General: cooperative, healthy appearing, comfortable, no acute distress, well developed, alert and awake Orientation/consciousness: patient oriented x3 Limitations: no limitations HEENT Head: Yes normal to inspection, Yes normocephalic and Yes atraumatic Ears: hearing grossly normal bilaterally Eyes General: appearance normal, both eyes and all related structures Neck Neck: Yes normal visual inspection and Yes trachea midline Chest Chest palpation & inspection: normal inspection of the chest Resp Effort & Inspection: normal respiratory effort and able to speak in complete sentences Cardio Rate: regular rate General: Yes no CVA tenderness Back/Spine/Pelvis Back: no CVA tenderness Neuro General: patient oriented x3 Extrem General: Yes normal to inspection Psych Appearance: grossly normal and well kempt Mental Status: mental status grossly normal Speech and movement: Normal speech and movement present and Clear speech present Affect: normal affect Attitude: cooperative Thought process: Normal thought process present Thought content: Normal thought content present Insight: Fair insight present (Psych) Judgement: Fair judgement present (Psych) Results AMB Urinalysis, Automated UA Leukoctes 15 Elieser/uL Last Edit by KAVON Ramirez on 12/09/24 12:59 UA Nitrite Negative Last Edit by KAVON Ramirez on 12/09/24 12:59 UA Urobilinogen 0.2 mg/dL Last Edit by [facility] on 12/09/24 12:5 9 UA Protein 15 mg/dL Last Edit by Naveen Aviles [facility] on 12/09/24 12:59 UA pH 6.0 Last Edit by Naveen Aviles [facility] on 12/09/24 12:59 UA Blood 0 Zheng/uL Last Edit by Naveen Aviles [facility] on 12/09/24 12:59 UA Specific [place] 1.020 Last Edit by Naveen Aviles [facility] on 12/09/24 12: 59 UA Ketone Negative Last Edit by Naveen Aviles [facility] on 12/09/24 12:59 UA Bilirubin 0 mg/dL Last Edit by Naveen Aviles [facility] on 12/09/24 12:59 UA Glucose 0 mg/dL Last Edit by Naveen Aviles [facility] on 12/09/24 12:59 Results Reviewed Results Reviewed: Laboratory Last Values Urine pH (Auto) 6.0 12/09/24 12:58 Specific [place] (Auto) 1.020 12/09/24 12:58 Urine Protein (Auto) 15 mg/dL 12/09/24 12:58 Glucose (UA)(Auto) 0 mg/dL 12/09/24 12:58 Urine Ketones (Auto) Negative 12/09/24 12:58 Urine Blood (Auto) 0 Zheng/uL 12/09/24 12:58 Urine Nitrite (Auto) Negative 12/09/24 12:58 Urine Bilirubin (Auto) 0 mg/dL 12/09/24 12:58 Urine Urobilinogen (Auto) 0.2 mg/dL 12/09/24 12:58 Leukocyte Esterase (Auto) 15 Elieser/uL 12/09/24 12:58 Assessment & Plan Assessment & Plan (1) Nephrolithiasis: Code(s): N20.0 - Calculus of kidney Category: Medical Plan In office urinalysis results reviewed with the patient today; as noted above. Continue vitamin B6 as discussed and prescribed We discussed and reviewed proper urine collection for Litholink. All questions were answered We discussed the importance of adequate hydration relation to nephrolithiasis as well as overall health and well-being. We discussed adding 1 oz of lemon juice to water daily. Will continue with surveillance monitoring. Will obtain Litholink for further assessment evaluation. Will obtain renal ultrasound Follow-up in 3 months with Litholink amd imaging to be completed prior; or sooner with any issues, concerns, and or questions Orders: Orders AMB Urinalysis Automated Today Z13.9 - Encounter for screening, unspecified US renal BI 3 Months N20.0 - Calculus of kidney URORISK Today N20.0 - Calculus of kidney Patient Instructions: The patient had an opportunity to ask questions regarding the treatment plan. All questions were answered. Physical exam, labs, and imaging were discussed and reviewed in detail. As well as risks, benefits, and discussion of treatment choices. No major barriers to understanding were identified. The patient expressed understanding and agreement with the above treatment plan. The patient was made aware they should contact our office by phone for worsening of their current condition, the appearance of new symptoms, or with any questions or concerns. Compliance is encouraged with any medications and follow up testing that is ordered. It is a privilege to be allowed the opportunity to participate in? your urological care.? Again, if you have any questions or concerns If you have any questions or concerns please do not hesitate to contact me. The office is [phone]. This note is constructed using voice recognition software. While every effort has been made to ensure accuracy data entry associate errors may have been included. Yours sincerely, ANT Johnson Coding Level of Care Code Est Pt Level 3 (02075) Diagnoses Nephrolithiasis N20.0
== END 2024-12-09 14:05 | disposition home or self-care (01) ==
LOC: HO.HUSH 12:41
PROVIDERS: PCP Internal Medicine; Visit Provider Nurse Practitioner Family
DX: Z13.9 Encounter for screening, unspecified (principal); N20.0 Calculus of kidney
CPT/HCPCS: 99213

== ENCOUNTER → 2024-12-09 12:41 | Outpatient (BNVA) | payer OTHER, SELFPAY | PROVIDERS: PCP Internal Medicine; Visit Provider Nurse Practitioner Family | DX: N20.0 Calculus of kidney (principal) | CPT/HCPCS: 81003 ==

== ENCOUNTER → 2024-12-10 15:02 | Outpatient (REF) | payer OTHER, SELFPAY ==
--- NOTE | 2024-12-10 15:12 | CA_ITS ---
Transthoracic Echocardiogram Patient (Last, First, Middle): Adry Desouza E Gender: Female Date of : 1975 Age: 49 Procedure Date: 12/10/2024 Procedure Type: Transthoracic Echocardiogram Location: OP Height: 167.64 cm Weight: 81.65 kg BSA: 1.91 m2 Heart Rate: bpm BP: 128 / 66 mmHg Cuprous Chloride Helper: TO Referring MD: Danny Alexander MD Symptoms: R00.2 - Palpitations Study Quality: Adequate with contrast ECG Rhythm: Sinus Conclusions: - The left ventricular systolic function is normal. The calculated ejection fraction is 58% by biplane method. - No obvious valvular pathology seen on this study. Findings Procedure Information Contrast agent, definity, is being given per protocol without apparent complications. Left Ventricle Normal left ventricular cavity size. There is normal left ventricular wall thickness. The left ventricular systolic function is normal. The calculated ejection fraction is 58% by biplane method. There is no evidence of regional wall motion abnormalities. Diastolic function is normal for age. Right Ventricle Normal right ventricular cavity size. There is low normal right ventricular systolic function. Atria Both atria are normal in size. Aortic Valve There is a normal trileaflet aortic valve. There is no aortic valve stenosis. There is no aortic valve regurgitation. Mitral Valve The mitral valve appears normal. There is trace mitral valve regurgitation. There is no mitral valve stenosis. Pulmonic Valve The pulmonic valve is likely normal. Tricuspid Valve There is trace tricuspid valve regurgitation. There is no evidence of pulmonary hypertension. Great Vessels The asc aorta is normal in size. Venous The inferior vena cava is normal in size and collapses greater than 50% with inspiration. Pericardium/Pleural There is no evidence of pericardial effusion. Prior Study Comparison No prior study available for comparison. Recommendations, Care & Conclusions No obvious valvular pathology seen on this study. Measurements 2D Linear Measurements IVSd: 0.73 0.6-0.9/0.6-1.0 cm LVIDd: 4.33 3.9-5.3/4.2-5.9 cm LVIDd Index: 2.27 2.4-3.2/2.2-3.1 cm/m2 LVIDs: 2.83 2.0-3.6 cm LVPWd: 0.75 0.7-1.1 cm LA Diam: 2.90 2.7-3.8/3.0-4.0 cm LAIDs Index: 1.52 1.5-2.3 cm/m2 LV Mass: 118.80 67-162/88-224 g LV Mass Index: 62.20 43-95/49-115 g/m2 LVOT Diam: 2.10 3.0+(-)1.3 cm 2D Systolic Function EF 4C: 58.60 >55% EF 2C: 58.50 >55% EF BiP: 57.80 >55% Mitral Valve MV Pk E: 0.58 MV PK A: 0.55 MV Decel Time: 222.00 E/A: 1.10 E'Lateral: 12.90 E'Medial: 8.81 E/E' Med: 6.60 E/E' Lat: 4.50 PHT: 65.00 MVA PHT: 3.38 Decel [place]: 2.62 Aortic Valve AoV Pk [place]: 1.25 AoV Mn [place]: 0.83 AoV VTI: 0.23 AoV Pk Grad: 6.00 Aov Mn Grad: 3.00 CAROL Cont.VTI: 3.26 LVOT LVOT Pk [place]: 1.14 LVOT Mn [place]: 0.72 LVOT VTI: 0.22 LVOT Pk Grad: 5.00 LVOT Mn Grad: 2.00 LVOT Diam: 2.10 LVOT Area: 3.46 Diastolic Function MV Pk E: 0.58 MV Pk A: 0.55 E/A: 1.10 E'Medial: 8.81 E/E' Med: 6.60 E' Laterial: 12.90 E/E' Lat: 4.50 Right Ventricle TAPSE (mm): 20.40 TVS' [place]: 9.57 Tricuspid Valve RA Press: 3.00 Great Vessels Aorta Sinus of Valsalva: 3.06 2.0-3.5 cm Ao Asc: 2.90 2.1-3.4 cm Updated in Other Vendor System with Status of Final Danny Alexander MD electronically signed on 12/12/2024 10:58:01 AM with status of Final
== END ==
LOC: HO.CARD 15:02
PROVIDERS: PCP Internal Medicine; Visit Provider Internal Medicine
DX: R00.2 Palpitations (principal)
CPT/HCPCS: 93306; Q9957

== ENCOUNTER → 2024-12-10 15:12 | Outpatient (BNV) | payer OTHER, SELFPAY | PROVIDERS: PCP Internal Medicine; Visit Provider Internal Medicine | DX: R00.2 Palpitations (principal) | CPT/HCPCS: 93306 ==

== ENCOUNTER 2024-12-18 09:13 | Outpatient (AMB) | payer OTHER, SELFPAY ==
--- NOTE | 2024-12-18 09:15 | MHC.OFFVIS ---
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 She recently underwent a Holter monitor and echocardiogram and now presents for follow-up. Today she reports that her palpitations have resolved. She says they occur at times and then go away for several months. The episodes are typically brief, lasting seconds. She does not recall having her heart palpitations when she wore the Holter monitor. No lightheadedness, presyncope, syncope, falls. No chest discomfort, shortness of breath, activity intolerance. 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 Currently feeling well. [facility] Medical History Heart palpitations Vitamin D deficiency Fibroadenoma Breast mass, left COVID-19 Overweight (BMI 25.0-29.9) History of menorrhagia Anxiety Depression Surgical History Hx of colonoscopy Hx of breast biopsy H/O prior ablation treatment Hx of tubal ligation Family History Mother Mental health disorder Father No problems noted. Social History Household Members: Family Housing: House Do you presently have visiting nurse or other home services: No Alcohol intake: current Alcohol intake frequency: holidays/special occasions only Patient Tobacco Use Status: Never used Tobacco e-Cigarette/Vaping Use: Never Used Second Hand Smoke Exposure: No service: No Current occupational status: employed Gender identity: Female Cognitive needs: No Hearing needs: No Vision needs: Yes Female Reproductive History Menstrual Age of Menarche: 13 Review of Systems Const All systems reviewed & are unremarkable except as noted in HPI and below Denies daytime sleepiness, Denies difficulty sleeping, Denies snoring, Denies stops breathing during sleep and Denies weakness Card Denies chest pain, Denies rapid heart rate, Denies irregular heart rhythm, Denies claudication, Denies leg edema, Denies lightheadedness, Denies palpitations, Denies dyspnea, Denies dyspnea on exertion, Denies orthopnea, Denies paroxysmal nocturnal dyspnea and Denies slow heart rate Resp Denies cough, Denies dyspnea, Denies dyspnea on exertion and Denies snoring GI Reports no additional complaints, Denies hematochezia, Denies change in stool character and Denies dyspepsia Musc Denies abnormal gait, Denies muscle weakness and Denies numbness Neuro Denies abnormal gait, Denies numbness and Denies weakness Endo Denies palpitations Physical Exam Vital Signs: Last Vital Signs Pulse 80 12/18/24 09:16 BP 106/62 12/18/24 09:16 BMI result Body Mass Index 30.0 Const General: cooperative, healthy appearing, comfortable and no acute distress Orientation/consciousness: patient oriented x3 Neck Neck: Yes normal visual inspection and Yes no JVD Resp Effort & Inspection: normal respiratory effort Auscultation: clear to auscultation bilaterally, no rales, no rhonchi and no wheezes Cardio Rate: regular rate Rhythm: regular rhythm Heart sounds: S1 normal heart sound present, S2 normal heart sound present, no gallops, no murmurs and no rubs Neuro General: patient oriented x3 Extrem General: Yes normal to inspection and No no pedal edema Psych Appearance: grossly normal Mental Status: mental status grossly normal Speech and movement: Normal speech and movement present Assessment & Plan Assessment & Plan (1) Heart palpitations: Code(s): R00.2 - Palpitations Category: Medical Plan: Prior reports of heart palpitations. Holter monitor done 11/02/2024 for 13 days shows sinus rhythm with average heart rate 86, rare ectopy, one 3 beat PVCs. Echocardiogram 12/10/2024 showed EF 58%, no valve abnormalities and no regional wall motion abnormalities. At this time her palpitations have resolved. She is likely feeling extrasystoles. Discussed reduction in caffeinated beverages, maintain good hydration and continue activity as tolerated. Cardiology follow-up PRN. (2) PVC (premature ventricular contraction): Code(s): I49.3 - Ventricular premature depolarization Category: Medical Plan: One episode of 3 beat PVCs/NSVT on Holter monitor. Likely incidental finding as her symptoms did not correlate with this. PVCs are benign in patient with normal ejection fraction. Offered reassurance. Plan Time spent on chart review, documentation, interview, assessment Coding Level of Care Code Est Pt Level 3 (32342) Complex EM visit Add On G2211 Diagnoses Heart palpitations R00.2 PVC (premature ventricular contraction) I49.3 Time Spent (min) 22
[2024-12-18 09:16] VITALS: BP 106/62; PULSE 80
== END 2024-12-18 09:36 | disposition home or self-care (01) ==
LOC: HO.HCS 09:14
PROVIDERS: PCP Internal Medicine; Visit Provider Nurse Practitioner Family
DX: R00.2 Palpitations (principal); I49.3 Ventricular premature depolarization
CPT/HCPCS: 99213; G2211

== ENCOUNTER → 2024-12-18 09:13 | Outpatient (BNVA) | payer OTHER, SELFPAY | PROVIDERS: PCP Internal Medicine; Visit Provider Nurse Practitioner Family | DX: R00.2 Palpitations (principal); I49.3 Ventricular premature depolarization; Z13.89 Encounter for screening for other disorder ==

== ENCOUNTER 2025-02-08 09:20 | Outpatient (REF) | payer OTHER, SELFPAY ==
--- NOTE | ~2025-02-08 | MM_ITS ---
EXAMINATION: MM SCREENING DIGITAL BREAST TOMOSYNTHESIS, BILATERAL CLINICAL INFORMATION: Screening. Asymptomatic. COMPARISON: Mammography: Comparison is made with available priors TECHNIQUE: Digital breast mammography with tomosynthesis is performed in both the craniocaudal and mediolateral oblique views along with computer-aided detection (CAD). FINDINGS: There are scattered areas of fibroglandular density. There are no significant masses, abnormal calcifications, or other abnormalities. MM/MM tomosynthesis screening BI IMPRESSION: No mammographic evidence of malignancy. ASSESSMENT: BI-RADS Category 1: Negative RECOMMENDATION: Routine annual mammography screening. 1 year F/U This examination should not preclude the clinical evaluation of a suspicious palpable abnormality. This patient's information was entered into a reminder system with a target due date for their next mammogram. Electronically signed by: Antoinette Harrison DO 02/09/2025 03:05 PM TRUNG
== END 2025-02-08 09:21 | disposition home or self-care (01) ==
LOC: HO.MAMMO 09:20
PROVIDERS: PCP Internal Medicine; Visit Provider Internal Medicine
DX: Z12.31 Encounter for screening mammogram for malignant neoplasm of breast (principal)
CPT/HCPCS: 77063; 77067

== ENCOUNTER → 2025-02-08 09:30 | Outpatient (BNV) | payer OTHER, SELFPAY | PROVIDERS: PCP Internal Medicine; Visit Provider Internal Medicine | DX: Z12.31 Encounter for screening mammogram for malignant neoplasm of breast (principal) | CPT/HCPCS: 77063; 77067 ==